=== PATIENT | male | born 1965 | race Caucasian/White ===

== ENCOUNTER → 2024-06-25 13:31 | Outpatient (REF) | payer MEDICARE, SELFPAY ==
[2024-06-25 14:42] LABS: % Basophils 1.3 % (0-2); % Immature Granulocytes 2.9 % (0-0.5); % Lymphocytes 32.7 % (20.5-51.1); % Neutrophils 52.1 % (42.2-75.2); Absolute Basophils 0.1 10^3/uL (0-0.2); Absolute Eosinophils 0.3 10^3/uL (0-0.7); Absolute Immature Granulocytes 0.3 10^3/uL (0-0.05); Absolute Lymphocytes 2.8 10^3/uL (1.2-3.4); Absolute Monocytes 0.7 10^3/uL (0.1-0.6); Absolute Neutrophils 4.5 10^3/uL (1.4-6.5); Hematocrit 45.1 % (39.0-52.0); Hemoglobin 15.6 g/dL (13.0-18.0); Mean Corp Hgb Conc. 34.6 g/dL (33.0-37.0); Mean Corpuscular Hgb 30.1 pg (27.0-31.0); Mean Corpuscular Volume 87.1 fL (80.0-94.0); Mean Platelet Volume 9.7 fL (7.4-10.4); Nucleated Red Blood Cells % 0 % (-); Platelet Count 338 10^3/uL (130-400); Red Blood Cell Count 5.18 10^6/uL (4.70-6.10); Red Cell Dist. Width 12.2 % (11.5-14.5); White Blood Cell Count 8.6 10^3/uL (4.8-10.8)
== END ==
LOC: REG 13:31
PROVIDERS: ATTENDING PHYSICIAN Specialist; FAMILY PHYSICIAN Family Medicine
DX: E29.1 Testicular hypofunction (principal); R97.20 Elevated prostate specific antigen [PSA]
CPT/HCPCS: 36415; 84153; 84403; 85025

== ENCOUNTER → 2025-02-04 13:24 | Outpatient (REF) | payer MEDICARE, SELFPAY ==
[2025-02-04 13:55] LABS: Hematocrit 47.3 % (39.0-52.0); Hemoglobin 16.6 g/dL (13.0-18.0); Mean Corp Hgb Conc. 35.1 g/dL (33.0-37.0); Mean Corpuscular Volume 86.5 fL (80.0-94.0); Nucleated Red Blood Cells % 0 % (-); Platelet Count 346 10^3/uL (130-400); Red Cell Dist. Width 12.5 % (11.5-14.5)
[2025-02-04 14:13] LABS: Depakane 35.1 ug/ml (50.0-120.0)
[2025-02-04 14:24] LABS: ALT (SGPT) 26 U/L (0-50); AST (SGOT) 24 U/L (17-59); Albumin 4.7 g/dl (3.5-5.0); Alkaline Phosphatase 73 U/L (38-126); Blood Urea Nitrogen 18 mg/dl (9-20); Calcium 9.8 mg/dl (8.4-10.2); Carbon Dioxide 22 mmol/L (22-30); Chloride 101 mmol/L (98-107); Glucose 272 mg/dl (70-99); Potassium 4.9 mmol/L (3.5-5.1); Sodium 136 mmol/L (135-145); Total Protein 8.1 g/dl (6.3-8.2); eGFR > 60.00
== END ==
LOC: REG 13:24
PROVIDERS: ATTENDING PHYSICIAN Psychiatry & Neurology Psychiatry; FAMILY PHYSICIAN Family Medicine
DX: Z51.81 Encounter for therapeutic drug level monitoring (principal); R94.5 Abnormal results of liver function studies; E87.1 Hypo-osmolality and hyponatremia; D72.819 Decreased white blood cell count, unspecified; D69.6 Thrombocytopenia, unspecified
CPT/HCPCS: 36415; 80053; 80164; 85025

== ENCOUNTER 2025-03-09 11:23 | Inpatient (IN) | payer MEDICARE, SELFPAY ==
[2025-03-09] VITALS (22 sets, daily range): BP systolic 128–193; BP diastolic 87–127; O2SAT 93; BMI 41.6; BMI 40.9
--- NOTE | 2025-03-09 06:16 | ED.GENMED ---
History of Present Illness
General
Chief Complaint: Blood Pressure Problem
Source: patient
Exam Limitations: none
Time Seen by Provider: 03/09/25 06:15
Nursing documentation reviewed up to this point in time: agreed with
History of Present Illness
History of Present Illness:
The patient is a 59-year-old man with a past medical history of congestive heart failure who complains of gradual onset of a headache and fatigue that started about 48 hours ago. Patient reports that over time the headache has intensified and is
severe. Patient reports it is located primarily along the front of his head and radiates towards the back, on both sides. He denies weakness, numbness, and vision changes. Patient denies cough and sore throat. He denies sick contacts. He
reports mild nausea but no vomiting. He denies diarrhea. He denies rash. Additionally, patient reports his blood pressure has been extremely high for several months because he is not been able to access his Coreg. He is unsure of the dose.
Patient states his primary care doctor has not refilled his Coreg due to outstanding medical bills.
Past History
Past History
ED Past Medical History: CHF, HTN and NIDDM
ED Past Surgical History: Other (Defibrillator)
Social History
Tobacco: Former smoker
Alcohol: None
Drug: None
Personal: Single
Living: with family
Employment: Other
Family History
Family History: Other
Review of Systems
Review of Systems
Allergies reviewed?: Yes
All Other Systems: ROS reviewed and negative except as documented in HPI and ROS
Constitutional: Reports fatigue
EENT: Reports no symptoms
Respiratory: Reports no symptoms
Cardiac: Reports no symptoms
ABD/GI: Reports nausea
: Reports no symptoms
Musculoskeletal: Reports no symptoms
Skin: Reports no symptoms
Neurological: Reports headache; Denies dizzy, weakness or numbness
Endocrine: Reports no symptoms
Hematologic/Lymphatic: Reports no symptoms
Psychiatric: Reports no symptoms
Phy Exam
Physical Exam
Physical Exam:
Physical Exam
General: Patient appears uncomfortable but nontoxic. Fully conversational
Neck: supple. no meningeal signs. No pharyngeal erythema or exudate. Dry mucous membrane
Heart: Tachycardic
Lungs: no acute respiratory distress. clear bilaterally
Abdomen: normal bowel sounds. not tender. no CVAT
Neuro: alert and orientedx3. no focal neurological deficits, PERRL, extraocular muscles intact. 5 out of 5 strength without drift. Patient appears to have some difficulty with right side visual meraz
Skin: no rash
Psychiatric: well kept. interactive and cooperative
Extremities: no edema. no calf tenderness. negative homans. good distal pulses
Course
Orders/Labs/Results
Orders:
Orders
03/09/25
CR Chest Portable - 1 View Urgent
Reason For Exam: SOB
03/09/25 06:08
Electrocardiogram (*1) Urgent
Reason for Study: Tachycardia
EKG- Treatment ONCE
03/09/25 06:09
Cardiovascular Evaluation Urgent
Comment: ADD
Complete Blood Count/With Diff Urgent
Comprehensive Metabolic Panel Urgent
Ferritin Urgent
Comment: ADD
Folate Urgent
Comment: ADD
Free T4 Urgent
Glycohemoglobin (HgbA1c) Urgent
LDL Cholesterol, Direct Urgent
NT-proBNP Urgent
Comment: ADD ON
TSH Reflex To Free T4 Urgent
Comment: ADD
Vitamin B12 Urgent
Comment: ADD
03/09/25 06:27
0.9% Sodium Chloride 1000 ml [Nss] 1,000 ml IV BOLUS
03/09/25 06:29
Carvedilol [Coreg] 25 mg PO NOW STA
03/09/25 06:30
CT Head W/o Iv Contrast Urgent
Comment:
Reason For Exam: headache
03/09/25 06:32
COVID-19 Antigen Urgent
Source: Nasal Swab
Influenza A+B Rapid Molecular Urgent
JASMEET Source: Nasal Swab
Specimen Description:
03/09/25 06:40
Acetaminophen [Tylenol] 1,000 mg PO NOW STA
03/09/25 07:34
CT Head & Neck Angio W/wo IV Urgent
Comment:
Reason For Exam: stroke, R vision changes for 24 hours
03/09/25 07:44
NEUROLOGY CONSULT Urgent
Consulting Provider: Stew Palacios
Was physician already notified: Yes
Reason for consult: stroke
Aspirin Chewable [Low Strength Aspirin] 81 mg PO NOW STA
03/09/25 08:03
HYDROmorphone [Dilaudid] 0.5 mg .ROUTE .STK-MED ONE
03/09/25 08:07
HYDROmorphone [Dilaudid] 0.5 mg IV NOW STA
03/09/25 09:26
Add On- LAB Routine
Tests Added?: folate, ferritin, TSH reflex, B12, lipid panel, hbA1c
03/09/25 09:32
Ot Eval And Treat Routine
Pt Eval And Treat Routine
Activity Level: Out of Bed-Early Mobility
Speech Therapy Eval & Treat Routine
Treatment: multiple large strokes
03/09/25 09:33
Prochlorperazine [Compazine] 10 mg IV NOW STA
Patient Education As Directed
Type: Stroke education packet
03/09/25 09:36
Case Management Consult ONCE
Case Management Consult: Discharge Planning
Comment: difficulty affording medications
03/09/25 10:00
Propranolol [Inderal] 10 mg PO BID
03/09/25 10:10
Diphenhydramine [Benadryl] 25 mg IV NOW STA
03/09/25 10:56
Add On- LAB Urgent
Tests Added?: BNP
03/09/25 11:04
Admit/Transfer Patient As Directed
Co-Sign Provider:
Level of Care: Inpatient admission
Assign to:: Telemetry
Physician / Group: ary schulte
Diagnosis: subacute CVA
Reason for Telemetry: CVA/TIA
Date to Stop Telemetry: 03/12/25
Time to Stop Telemetry: 11:00
Reason for Hospitalization: subacute CVA
Expected length of stay greater than two midnights?: Yes
ELOS- Estimated Length of Stay in days: 2
I certify the patient meets the requirements for IP care: Yes
03/09/25 11:05
PRN Pain Medication Management As Directed
May give lesser potent ordered pain med per pt: Yes
preference::
Protocol:: Medication orders for pain may be administered in a
manner that supports deferring to patient preference
when the pt is:
- Requesting an ordered lesser potent pain medication.
Least to most potent pain medications are defined
as: acetaminophen < NSAID < tramadol < opioids
(morphine, oxycodone, hydromorphone).
- Requesting a lesser dose of the same medication IF
ORDERED.
- Requesting a less intrusive route of administration
if both routes are prescribed by the provider (PO <
IV).
03/09/25 11:10
Code Status As Directed
Resuscitation Status: Full Code
03/09/25 11:15
Clopidogrel Bisulfate [Plavix] 300 mg PO NOW STA
Lisinopril [Zestril] 20 mg PO DAILY
03/09/25 11:19
Insulin Glargine Lantus [Lantus] 20 units Subcutaneous Insulin Syringe [Syringe-Insulin] 0 unit SC ONCE
03/09/25 11:52
Sodium Urgent
03/09/25 15:30
Prochlorperazine [Compazine] 10 mg IV Q6HPRN PRN
03/12/25 11:00
DC Protocol for Telemetry ONCE
Abnormal Lab Results
03/09/25 03/09/25
06:09 10:32
Abs Immat Gran (auto) 0.5 H 10^3/uL
(0-0.05)
Absolute Monos (auto) 0.9 H 10^3/uL
(0.1-0.6)
Immature Gran % 4.3 H %
(0-0.5)
Sodium 129 L mmol/L
(135-145)
Chloride 96 L mmol/L
(98-107)
Carbon Dioxide 21 L mmol/L
(22-30)
BUN 24 H mg/dl
(9-20)
Glucose 358 H mg/dl
(70-99)
Hemoglobin A1c 9.6 H %
(4.0-5.6)
Triglycerides 1865 H mg/dl
(10-149)
Total Cholesterol 265 H mg/dl
(50-199)
TSH (Reflex) 18.40 H uIU/ml
(0.47-4.68)
POC Glucose 275 H mg/dl
(70-99)
03/09/25 06:09
03/09/25 06:09
Vital Signs
Initial and Last Documented VS:
Initial Vital Signs
Temp Pulse Resp BP
99.9 F 119 20 165/106
03/09/25 05:55 03/09/25 05:55 03/09/25 05:55 03/09/25 05:55
Last Documented Vital Signs
Temp Pulse Resp BP Pulse Ox
99.9 F 84 12 139/93 96
03/09/25 05:55 03/09/25 13:45 03/09/25 13:45 03/09/25 13:36 03/09/25 13:45
MDM/Problems Addressed
Differential Diagnosis Includes:
Acute viral illness such as COVID or flu, hypertensive urgency, hypertensive emergency, acute meningitis
MDM/Problems Addressed:
Patient presents with acute headache and uncontrolled blood pressure
Chronic conditions affecting care: HTN
Acute Exacerbation and/or Progression of Chronic Illness:
Patient is acutely hypertensive due to poor control of his chronic hypertension
Acute Exacerbation and/or Progression of Chronic Illness: HTN
*Radiology
Radiology exam reviewed: preliminary read by ED provider (Chest x-ray read by me. No acute disease) and radiology read reviewed
*Pulse Oximetry
Oxygen Mode of Delivery: Room air
Patient hypoxic: no
*EKG
Interpreted by ED Provider?: Yes
Interpretation: abnormal
Comparison EKG: no comparison EKG present
Rate: tachycardiac
Rhythm: av sequential
[place]: right axis deviation
Interval: normal interval
QRS Pattern: wide non-specific
Ischemia: non-specific ST changes
*Press Operator Printing Interpretation
Rate: tachycardiac
Interpretation: abnormal
Rhythm: av sequential
*Critical Care Note
Total Time (30-74mins, 75-104mins- exclusive of procedures): 46 minutes
comment:
46 minutes of critical care given to patient including reviewing his blood work, CT report, speaking to radiology as well as neurology as well as counseling the patient
Data Reviewed
Review of Other/Old Records Reveals: Labs (Labs reviewed from 01/2025 when patient was found to have a glucose of 272)
Patient Management
Social determinants of health affecting care: Living situation and Strong social support
Discussion with other providers: Hospitalist and Other (Dr. Palacios evaluated the patient on consult)
Escalation/DeEscalation of care consider admission/obs:
Patient will be admitted for subacute infarct
Update Note
Update Note:
7:15 AM I received a call from radiology that patient's CT shows a large subacute left posterior parietal occipital infarct. Dr. Palacios notified.
I went in to evaluate the patient again. He is now telling me that he has had vision changes that he woke up with yesterday morning. He describes that he is unable to read words that are on the right side of the page. Patient did not tell me
about this symptom until now.
multiple attempts to get patient down for CTA. Patient states that he cannot tolerate laying flat because he feels short of breath. I listen to his lungs multiple times and they remain clear. Chest x-ray ordered and shows no acute disease. I
have made multiple attempts to encourage patient to get the CTA
ED Attending Note
-
Portions of this chart may have been created with voice recognition software.� Occasional wrong word or��sound alike� substitutions may have occurred due to the inherent limitations of voice recognition software.
Discharge Plan
Departure
Patient Disposition: Admit
Date of Disposition: 03/09/25
Time of Disposition: 09:00
Presentation/result/management discussed w/ accepting MD/DO: Hospitalist
Patient with high blood pressure during this ER visit?: Yes
Condition: Fair
Covid-19: Not Applicable
Discharge Problem:
Hypertensive emergency, Subacute infarct, Hyperglycemia due to diabetes mellitus
Interventions
Interventions:
*Risk Screen - Suicide Last Done: 03/09/25 05:55
*General Assessment Last Done: 03/09/25 05:55
*Neglect/Abuse Screening Last Done: 03/09/25 05:55
*ED- Fall Risk Assessment Last Done: 03/09/25 05:55
*ED COVID-19 Vaccine History Last Done: 03/09/25 06:16
*ED Influenza Vaccine History Last Done: 03/09/25 06:16
ED- Cardiac Assessment Last Done: 03/09/25 06:16
ED- Neurological Assessment Last Done: 03/09/25 07:50
ED- Pulmonary Assessment Last Done: 03/09/25 06:16
[2025-03-09] MEDS: COREG 25 MG PO (06:38)
[2025-03-09] MEDS: NSS 1000 IV (06:40)
[2025-03-09 06:45] LABS: Hematocrit 41.9 % (39.0-52.0); Hemoglobin 15.0 g/dL (13.0-18.0); Mean Corp Hgb Conc. 35.8 g/dL (33.0-37.0); Mean Corpuscular Volume 85.5 fL (80.0-94.0); Nucleated Red Blood Cells % 0.2 % (-); Platelet Count 338 10^3/uL (130-400); Red Cell Dist. Width 14.0 % (11.5-14.5)
[2025-03-09] MEDS: TYLENOL 1000 MG PO (07:01)
[2025-03-09 07:15] LABS: COVID-19 Antigen Negative (Negative)
[2025-03-09 07:18] LABS: ALT (SGPT) 28 U/L (0-50); AST (SGOT) 21 U/L (17-59); Albumin 4.0 g/dl (3.5-5.0); Alkaline Phosphatase 83 U/L (38-126); Blood Urea Nitrogen 24 mg/dl (9-20); Calcium 9.6 mg/dl (8.4-10.2); Carbon Dioxide 21 mmol/L (22-30); Chloride 96 mmol/L (98-107); Estimated Creatinine Clearance > 125 ml/min; Glucose 358 mg/dl (70-99); Potassium 4.9 mmol/L (3.5-5.1); Sodium 129 mmol/L (135-145); Total Protein 7.2 g/dl (6.3-8.2); eGFR > 60.00
[2025-03-09] MEDS: LOW STRENGTH ASPIRIN 81 MG PO (07:52)
[2025-03-09] MEDS: DILAUDID 0.5 MG IV (08:07)
--- NOTE | 2025-03-09 09:19 | CON.NEURO4 ---
Addendum entered and electronically signed by Stew Palacios MD 03/09/25 12:53:
Studies reviewed.
I have personally examined the patient. I reviewed and agree with the RESEARCH PROGRAM COORDINATOR's Note.
My addenda:
Awake, alert, interactive. No acute distress.
Speech intact.
Follows 2-step requests w/o difficulty. No tremor.
Extra-ocular movements grossly intact.
Facial movements full and symmetric. Hearing intact to normal conversational volume.
Normal UE movements bilaterally.
Neck: full ROM.
Chest: no dyspnea
Heart: no JVD
Ext: (-) Clubbing, (-) Cyanosis, (-) Edema
IMPRESSIONS/RECOMMENDATIONS:
Abrupt onset of visual loss secondary to acute ischemic stroke involving the left parieto-occipital region
Most likely secondary to medical noncompliance secondary to economic issues
Provide aspirin and clopidogrel for 21 days, then aspirin alone
Provide Ezetimibe due to the patient's elevated triglycerides and unclear LDL level
Goal of normotension
Check CTA head and neck due to possible intracranial stenosis
Check blood work for potential metabolic changes
Check MRI of brain when possible for completeness
Rehabilitation evaluations and treatment
D/W patient
All questions answered.
Will continue to follow pending results.
Original Note:
Documented by User: Rose Hurd NP 03/09/25 12:28
Consultation - Neurology 4
-
CONSULTING PHYSICIAN: Stew Palacios MD
REFERRING PHYSICIAN: ER/Dr. Contreras
DICTATED BY: PARDEEP Snow
DATE/TIME OF REQUEST: 03/09/25
DATE/TIME OF CONSULTATION: 03/09/25
Reason for Consultation: Vision changes, headache
History of Present Illness:
This is a 59-year-old right-handed male who has presented to the hospital with report of headache and vision changes. Patient has a history of a right parietal ischemic stroke in 2017. He reports at that time he had whole body weakness/was unable
to turn over in bed, had brain fog, and a severe headache. He was evaluated at [facility] at that time. He did not have any surgical intervention/unknown if he received tPA. He notes that for some time following that stroke he had processing
difficulty, but this resolved and he was back to functioning at baseline. He takes a full dose aspirin, he reports this is per Cardiology. Due to financial difficulty, he notes that he he has been unable to obtain his medications and his blood
pressure has been significantly high fo several months.
About two days ago on 03/07/25 he reports developing a severe headache that was disrupting his sleep. He notes that the pain is in his left neck, bitemporal, and sometimes on the top of his head. He rates it an 8/10. He also endorses nausea and mild
photophobia. This morning (03/09/25), he reports waking up and being unable to see things on his right side, prompting him to come to the ER for evaluation. CT head was obtained and demonstrates a large left parietal-occipital subacute ischemic
infarct. He is not a candidate for TNK/IAT due to being outside of the time window, infarct appearing subacute. He reports that his vision change has persisted. He denies any dizziness, speech/swallow difficulty, numbness, and weakness. He notes
some brain fog/difficulty processing things.
Past Medical History: Right parietal ischemic stroke 2017, CHF, HTN, HLD, CAD, NIDDM, obesity, LESTER (not wearing cpap)
Surgical History: AICD
Family History: Reviewed and noncontributory.
Social History: Former smoker. Denies alcohol and illicit drug use.
Allergies: No known allergies.
Home Medications: See below.
Review of Symptoms:
Patient denies any fever, chest pain, shortness of breath, GI or symptoms.
�Per the HPI.�All systems are reviewed negative except above.
Physical Exam:
The patient is afebrile, abdomen is obese, breathing is unlabored, skin is warm and dry, no edema.
NIH Stroke Scale:
I performed the NIH stroke scale on the patient on 03/09/25 at 0930. The patient scored 2 points on the NIH stroke scale assessment, which were assigned as follows: See below.
Neurologic Examination:
The patient is awake, alert and oriented x 3. He is able to follow simple commands and answer questions appropriately. Mild difficulty following two-step commands. There is no aphasia or dysarthria. On cranial nerve assessment, pupils are 3 mm
bilateral, round and reactive to light and accommodation. There is a homonymous right hemianopia. Extraocular movements are intact. Facial sensations are intact and bilaterally symmetrical, there is no facial asymmetry. Hearing is intact bilaterally
to normal conversation volume. Tongue palate and uvula are midline. Sternocleidomastoid strengths are full bilaterally. Motor strengths are 5/5 bilateral upper, 5/5 right lower, and 5-/5 left lower extremities on medical research [place] scale.
There is no drift or involuntary movement noted. Deep tendon reflexes are 1+ bilateral upper and lower extremities and Babinski is absent bilaterally. There was no extinction noted on double simultaneous stimulation. Coordination is intact by finger
to nose bilaterally.
Lab Results: See below.
Neuro Imaging:
1. CT head 03/09/25: Findings compatible with moderate old infarct in the right posterior parietal lobe. Moderate to large sized area of slight decreased attenuation in the left posterior parietal-occipital region likely representing a subacute
nonhemorrhagic infarct. In light of clinical symptomatology, other etiologies such as infection or tumor would be less likely. Recommend MRI for more complete evaluation.
Differentials for the patient's presentation include:
1. Abrupt change in vision and headache likely due to a subacute left parietal-occipital ischemic infarct as demonstrated on CT head imaging.
2. Uncontrolled hypertension.
3. History of a large left parietal ischemic stroke.
Patient has the following risk factors for their symptoms: Hx stroke, HTN, HLD, obesity
IV Tenecteplase/IAT candidacy: He is not a candidate for TNK/IAT due to being outside of the time window, infarct appearing subacute.
Recommendations:
-Provide prochlorperazine 10mg IV x1 now for headache.
-CTA head/neck pending.
-Unable to have MRI brain due to AICD.
-Provide a loading dose of clopidogrel x1 now. Continue full dose aspirin and clopidogrel 75mg daily for 21 days.
-Aspirin efficacy testing pending.
-Goal normotension as this event likely occurred days ago.
-LDL goal <70. LDL is 35, at goal, but inaccurate due to triglyceride level of 1865. Consideration of starting ezetimibe or fenofibrate for triglyceride and lipid control.
-Goal normoglycemia, hbA1c is 9.6.
-NIHSS and neurological checks per unit guidelines.
-Provide patient with a stroke education packet.
-PT/OT/ST evaluations.
-DVT prophylaxis.
Discussed patient care with: Dr. Palacios, the patient
Vital Signs and Labs
-
Vital Signs and Labs:
Vital Signs
Temp Pulse Resp BP Pulse Ox
99.9 F 107 17 178/95 93
03/09/25 05:55 03/09/25 09:00 03/09/25 09:00 03/09/25 09:00 03/09/25 09:00
Lab Results
03/09/25 06:09
03/09/25 06:09
Sodium 129 mmol/L (135-145) L 03/09/25 06:09
Potassium 4.9 mmol/L (3.5-5.1) 03/09/25 06:09
BUN 24 mg/dl (9-20) H 03/09/25 06:09
Glucose 358 mg/dl (70-99) H 03/09/25 06:09
Calcium 9.6 mg/dl (8.4-10.2) 03/09/25 06:09
Medications
-
Home Medications
�Medication �Instructions �Recorded
allopurinol 100 mg tablet 100 mg PO DAILY 03/09/25
aspirin 325 mg tablet 325 mg PO DAILY 03/09/25
bupropion HCl 150 mg 24 hr tablet, 150 mg PO DAILY 03/09/25
extended release (Wellbutrin XL)
cholecalciferol (vitamin D3) 25 25 mcg PO DAILY 03/09/25
mcg (1,000 unit) tablet (Vitamin
D3)
divalproex 500 mg tablet,delayed 1,000 mg PO BID 03/09/25
release (Depakote)
icosapent ethyl 1 gram capsule 2 g PO BID 03/09/25
(Vascepa)
levothyroxine 200 mcg tablet 200 mcg PO DAILY 03/09/25
(Synthroid)
levothyroxine 25 mcg tablet 25 mcg PO DAILY 03/09/25
(Synthroid)
magnesium oxide 400 mg PO DAILY 03/09/25
metformin 500 mg tablet 1,000 mg PO BID 03/09/25
mirtazapine 15 mg tablet 15 mg PO HS 03/09/25
spironolactone 25 mg tablet 25 mg PO DAILY 03/09/25
testosterone 2 pump topical DAILY 03/09/25
therapeutic multivitamin 1 tab PO DAILY 03/09/25
trazodone 100 mg tablet 200 mg PO HS 03/09/25
venlafaxine 150 mg 150 mg PO HS 03/09/25
capsule,extended release 24 hr
(Effexor XR)
venlafaxine 150 mg 300 mg PO DAILY 03/09/25
capsule,extended release 24 hr
(Effexor XR)
NIH Stroke Score
Subsequent NIH Scale
Date of Subsequent NIH Scale: 03/09/25
Time of Subsequent NIH Scale: 09:30
NIH Stroke Score
Level of Consciousness: 0 - Alert
LOC Questions: 0-Answers both correctly
LOC Commands: 0-Performs both correctly
Best Horizontal Gaze: 0-Normal
Visual [place]: 2=Full hemianopia
Facial Palsy: 0=Normal, symmetrical
Motor - Right Arm: 0=No drift 10 seconds
Motor - Left Arm: 0=No drift 10 seconds
Motor - Right Le-No drift 5 seconds
Motor - Left Le-No drift 5 seconds
Limb Ataxia: 0-Absent
Sensation: 0-Normal
Best Language: 0-No aphasia
Dysarthria: 0-Normal
Extinction and Inattention: 0-No abnormality
NIH Total Score:: 2
Modified [place] (mRS) Score
Modified [place] Scale (mRS): Moderate disability. Requires some help, able to walk unassisted.
Score: 3
Alteplase Contraindication
Inclusion and Exclusion criteria reviewed: Yes
Reasons for NON-Tx with Thrombolytics ABSOLUTE Exclusions: Greater than 4.5 hrs from onset of sxs
IAT Contraindications: NIHSS < 6

Documented by User: Stew Palacios MD 03/09/25 12:47
NIH Stroke Score
NIH Stroke Score
NIH Total Score:: 2
Modified [place] (mRS) Score
Score: 3
[2025-03-09] MEDS: COMPAZINE 10 MG IV (09:52)
--- NOTE | 2025-03-09 10:12 | EDCM ---
CM received consult and reviewed chart. Met with pt bedside in ED. Lives with his mother in first floor apartment, no CHERY. 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
Independent in ADLs, personal care and ambulation. No assistive devices.
Confirms prescription coverage.
No hx VN or SNF.
PCP: Will be seeing Kylah Alanis [employer] at [facility] in April, his former PCP retired. Also follow with Dr [facility] at [facility].
Pt is having difficulty with medical expenses as he has been focusing on his mother's care. Pt told me he has an outstanding bill at his doctor's office so they did not refill his meds. I gave him information for [email or web address] and [facility]
on Aging.
CM will continue to follow for all discharge planning needs.
[2025-03-09] MEDS: INDERAL 10 MG PO ×2 (10:13→19:48)
[2025-03-09] MEDS: BENADRYL 25 MG IV (10:13)
[2025-03-09 10:21] LABS: HDL Cholesterol 40 mg/dl
[2025-03-09 10:35] LABS: Glucose - Point of Care 275 mg/dl (70-99)
--- NOTE | 2025-03-09 10:35 | HPS.HSE ---
Family Physician
-
Family Physician: Iain Nicholson
Chief Complaint
-
CHATTERJEE, vision changes
History of Present Illness
59-year-old male with a past medical history of stroke, hypertension, diabetes, CHF, hypothyroidism, gout, anxiety/depression, and obesity who presents with a 2-3-day history of right parietal headache with vision changes. Patient denies dysphagia,
denies dysarthria, denies weakness. No double vision. He reports that the peripheral vision on his right eye is faded. He was found to be hypertensive in the ER, with a head CT showing subacute stroke. Patient also complains of shortness of
breath for 5 days. He denies any weight gain, denies missing his Aldactone. He is not on Lasix at home. He denies coughing, denies wheezing.
Medical History
Past Medical History
Past Medical History: Reports Other
Additional Past Medical History:
Congestive heart failure
Hypothyroidism
Anxiety/depression
Gout
Diabetes
Essential hypertension
Stroke in 2017
Obesity
Past Surgical History: Reports Other
Additional Past Surgical History:
Defibrillator placement
Tonsillectomy
Social History
Tobacco: Smoker (Quit cigarettes 15 years ago, now smokes 1 cigar a day)
Alcohol: None
Drug: None
Living: With Family (Lives with his mother with dementia, and cares for her)
Family History
Family History: Not pertinent
Allergies / Home Medications
Allergies reflects when Allergies were last updated in [facility].
Home Medications with original date entered in [facility]
Allergy/Medication List:
Allergies
Allergy/AdvReac Type Severity Reaction Status Date / Time
No Known Allergies Allergy Unverified 03/09/25 06:07
Home Medications Table - record
�Medication �Instructions �Recorded �Confirmed
allopurinol 100 mg tablet 100 mg PO DAILY 03/09/25 03/09/25
aspirin 325 mg tablet 325 mg PO DAILY 03/09/25 03/09/25
bupropion HCl 150 mg 24 hr tablet, 150 mg PO DAILY 03/09/25 03/09/25
extended release (Wellbutrin XL)
cholecalciferol (vitamin D3) 25 25 mcg PO DAILY 03/09/25 03/09/25
mcg (1,000 unit) tablet (Vitamin
D3)
divalproex 500 mg tablet,delayed 1,000 mg PO BID 03/09/25 03/09/25
release (Depakote)
icosapent ethyl 1 gram capsule 2 g PO BID 03/09/25 03/09/25
(Vascepa)
levothyroxine 200 mcg tablet 200 mcg PO DAILY 03/09/25 03/09/25
(Synthroid)
levothyroxine 25 mcg tablet 25 mcg PO DAILY 03/09/25 03/09/25
(Synthroid)
magnesium oxide 400 mg PO DAILY 03/09/25 03/09/25
metformin 500 mg tablet 1,000 mg PO BID 03/09/25 03/09/25
mirtazapine 15 mg tablet 15 mg PO HS 03/09/25 03/09/25
spironolactone 25 mg tablet 25 mg PO DAILY 03/09/25 03/09/25
testosterone 2 pump topical DAILY 03/09/25 03/09/25
therapeutic multivitamin 1 tab PO DAILY 03/09/25 03/09/25
trazodone 100 mg tablet 200 mg PO HS 03/09/25 03/09/25
venlafaxine 150 mg 150 mg PO HS 03/09/25 03/09/25
capsule,extended release 24 hr
(Effexor XR)
venlafaxine 150 mg 300 mg PO DAILY 03/09/25 03/09/25
capsule,extended release 24 hr
(Effexor XR)
Review of Systems
-
A 12 point ROS was completed and negative except as noted: Yes
Physical Exam
Vital Signs
Vital Signs
Temp Pulse Resp BP Pulse Ox
99.9 F 115 17 177/95 93
03/09/25 05:55 03/09/25 10:13 03/09/25 09:00 03/09/25 10:23 03/09/25 09:00
Physical Exam
General: No Apparent Distress
HEENT: NormoCephalic, Anicteric and Moist mucous membranes
Respiratory: Clear
Cardiac: S1/S2 and Regular Rhythm
GI: Soft, Non Tender, Non Distended and Normal Bowel Sounds
Musculoskeletal: No Clubbing, No Cyanosis, Edema, Left Lower Extremity and Edema, Right Lower Extremity
Neuro: Awake, Alert, Oriented and Other (Right visual field deficit)
Psych: Calm
Laboratory Results
-
03/09/25 06:09
03/09/25 06:09
Laboratory Results
Total Bilirubin 0.5 mg/dl (0.2-1.3) 03/09/25 06:09
AST 21 U/L (17-59) 03/09/25 06:09
ALT 28 U/L (0-50) 03/09/25 06:09
Alkaline Phosphatase 83 U/L (38-126) 03/09/25 06:09
Impression/Plan
-
HPI: 59-year-old male with a past medical history of stroke, hypertension, diabetes, CHF, hypothyroidism, gout, anxiety/depression, and obesity who presents with a 2-3-day history of right parietal headache with vision changes. Patient denies
dysphagia, denies dysarthria, denies weakness. No double vision. He reports that the peripheral vision on his right eye is faded. He was found to be hypertensive in the ER, with a head CT showing subacute stroke. Patient also complains of
shortness of breath for 5 days. He denies any weight gain, denies missing his Aldactone. He is not on Lasix at home. He denies coughing, denies wheezing.
#Subacute CVA
Head CT shows 'Moderate to large sized area of slight decreased attenuation in the left posterior parietal-occipital region likely representing a subacute nonhemorrhagic infarct'
Out of the window for permissive hypertension, treat blood pressure as below
He is on aspirin 325 mg daily at home, unclear why
Start aspirin 81 mg daily, start Plavix 75 mg daily for 21 days through 03/30, start Zetia and atorvastatin
Treat diabetes that is uncontrolled, as below
Treat hypertriglyceridemia as below
Consult neurology, PT/OT/SPL
#Hypertensive emergency
Start lisinopril 20 mg daily, continue spironolactone 25 mg daily
#Acute heart failure, unknown ejection fraction
CXR neg, BNP 1739
Check echocardiogram, start Lasix 40 mg IV daily, continue spironolactone 25 mg daily, trend creatinine, trend daily weights
#Hypervolemic hyponatremia
Fluid restrict, Lasix, trend sodium
#Hypertriglyceridemia
Triglycerides 5, LDL 35 is an accurate
Patient on Vascepa at home
Start Zetia and atorvastatin
#Uncontrolled type 2 diabetes with hemoglobin A1c 9.6
Start Lantus 20 units daily at noon, start Premeal insulin
Diabetic diet, sliding scale insulin
#Cigar dependency
Quit smoking 15 years ago, now smokes 1 cigar a day
#Hypothyroidism
TSH 18.4, free T4 normal
Currently on levothyroxine to 25 mcg daily, will ask patient when was the last time he had his dose increased
#Anxiety/depression
Continue mirtazapine, Wellbutrin
#History of gout
Continue allopurinol
#Obesity due to excess calories
Affects all aspects of care
DVT prophylaxis�subcu Lovenox
Full Code
Total time spent to see the patient on the floor, examine the patient, review data and lab results, discuss treatment plan with patient, nursing staff around 81 minutes.
[2025-03-09 10:53] LABS: Glycohemoglobin (HgbA1c) 9.6 % (4.0-5.6)
[2025-03-09 11:06] LABS: LDL Cholesterol, Direct 35 mg/dl
[2025-03-09] MEDS: ZESTRIL 20 MG PO (11:45)
[2025-03-09] MEDS: PLAVIX 300 MG PO (11:45)
[2025-03-09] MEDS: LANTUS 0.2 UNITS SC ×2 (11:49→16:54)
[2025-03-09 12:01] LABS: Ferritin 52.7 ng/ml (17.9-464.0)
[2025-03-09 12:26] LABS: Sodium 129 mmol/L (135-145)
[2025-03-09 12:32] LABS: Folate 4.0 ng/ml (2.76-20); Vitamin B12 521 pg/ml (239-931)
[2025-03-09] MEDS: LASIX 40 MG IV (13:22)
--- NOTE | 2025-03-09 16:01 | PTOTSP ---
Speech Therapy Evaluation:
Language:
Given subacute CVA, the Quick Aphasia Battery (QAB) form 1 was administered. Scores were as follows:
Word Comprehension: 10.00
Sentence Comprehension: 10.00
Word Findin.75
Grammatical Construction: 9.75
Speech Motor Programmin.00
Repetition: 10.00
Readin.50
QAB Overall: 9.73 - no aphasia
Impression: Pt earned an overall score of 9.73 on the QAB, indicative of no aphasia. Points lost on reading comprehension subtest due to delay in response time with R visual changes. Pt reported difficulty with R peripheral vision, however able to
adequately scan/visualize stimulus on R side of page. With reading subtest, pt utilized finger tracking for improved accuracy
Swallowing:
Pt with acute (subacute CVA) and chronic (CVA) risk factors of dysphagia. Despite this, oropharyngeal swallow appeared grossly functional at bedside. No overt s/sx of aspiration across consistencies. CXR without PNA, WBC WNL, and pt on room air.
Recommend:
1. Regular solids and thin liquids
2. Medications as tolerated
3. General aspiration precautions
4. COMMUNITY ENGAGEMENT MANAGER to follow to monitor tolerance of diet, likely brief and to determine if pt would benefit from cognitive assessment
[2025-03-09] MEDS: ZETIA 10 MG PO (16:53)
[2025-03-09] MEDS: DEPAKOTE (12 HR RELEASE) 1000 MG PO ×2 (16:53→19:48)
[2025-03-09] MEDS: ZYLOPRIM 100 MG PO (16:53)
[2025-03-09] MEDS: WELLBUTRIN XL (24 hour extended release) 150 MG PO (16:53)
[2025-03-09] MEDS: ALDACTONE 25 MG PO (16:54)
[2025-03-09] MEDS: LOVENOX 60 MG SC (16:57)
[2025-03-09] MEDS: LIPITOR 40 MG PO (16:57)
[2025-03-09] MEDS: EFFEXOR XR 300 MG PO (17:10)
[2025-03-09 19:36] LABS: Glucose - Point of Care 277 mg/dl (70-99)
[2025-03-09] MEDS: NOVOLOG FLEXPEN 5 UNITS SC (19:48)
[2025-03-09] MEDS: NOVOLOG FLEXPEN-MODERATE RESISTANCE 5 UNITS SC (19:48)
[2025-03-09] MEDS: TYLENOL 650 MG PO (19:50)
[2025-03-09] MEDS: EFFEXOR XR 150 MG PO (21:17)
[2025-03-09] MEDS: REMERON 15 MG PO (21:17)
[2025-03-09] MEDS: DESYREL 200 MG PO (21:17)
[2025-03-09 22:02] LABS: Glucose - Point of Care 335 mg/dl (70-99)
[2025-03-10] VITALS (7 sets, daily range): BP systolic 122–158; BP diastolic 78–106; PULSE 100; BMI 40.9
--- NOTE | 2025-03-10 03:19 | PTCARENOTE ---
Pt came to the nursing station asking for more trazadone as he 'cannot sleep'. When I went in the room to talk to the patient, I told him that I had asked the House Provider, Ann Hermosillo, for something for sleep/anxiety. Pt was unhappy that that
would 'take too long' and that he 'need something to knock me out'. While awaiting a reply from Ann, pt expressed that he wanted to leave AMA. Ann came to bedside to talk with the patient.
[2025-03-10] MEDS: BENADRYL 25 MG IV (03:32)
--- NOTE | 2025-03-10 04:40 | PTCARENOTE ---
Pt came to nurses station asking for food, implying that his shakiness was due to hypoglycemia. Accucheck revealed a blood sugar of 274. Pt asked 'what does that mean?' Informed pt that his blood sugar was high and that he might require his insulin
to be increased during the day.
[2025-03-10 04:42] LABS: Glucose - Point of Care 274 mg/dl (70-99)
[2025-03-10] MEDS: SYNTHROID 25 MCG PO (04:45)
[2025-03-10] MEDS: SYNTHROID 200 MCG PO (04:45)
--- NOTE | 2025-03-10 06:15 | PTCARENOTE ---
Pt very agitated and restless about not being able to order food yet. Informed pt that he can order breakfast when the cafeteria opens at 06:30. Pt demanded I 'get the discharge paperwork'. Informed House Provider. Lunch box provided to pt.
Accucheck obtained and insulin administered per orders.
[2025-03-10] MEDS: NOVOLOG FLEXPEN 4 UNITS SC (06:25)
[2025-03-10] MEDS: NOVOLOG FLEXPEN-MODERATE RESISTANCE 5 UNITS SC ×2 (06:25→18:34)
[2025-03-10 06:26] LABS: Glucose - Point of Care 283 mg/dl (70-99)
[2025-03-10] MEDS: WELLBUTRIN XL (24 hour extended release) 150 MG PO (08:14)
[2025-03-10] MEDS: EFFEXOR XR 300 MG PO (08:14)
[2025-03-10] MEDS: ZYLOPRIM 100 MG PO (08:15)
[2025-03-10] MEDS: PLAVIX 75 MG PO (08:15)
[2025-03-10] MEDS: LOW STRENGTH ASPIRIN 81 MG PO (08:15)
[2025-03-10] MEDS: DEPAKOTE (12 HR RELEASE) 1000 MG PO ×2 (08:15→20:45)
[2025-03-10] MEDS: INDERAL 10 MG PO ×2 (08:15→20:45)
[2025-03-10] MEDS: ALDACTONE 25 MG PO (08:15)
[2025-03-10] MEDS: ZESTRIL 20 MG PO (08:15)
[2025-03-10] MEDS: LOVENOX 40 MG SC (08:16)
[2025-03-10] MEDS: ZETIA 10 MG PO (08:19)
[2025-03-10] MEDS: TYLENOL 650 MG PO (09:21)
--- NOTE | 2025-03-10 09:32 | W.PN.NEURO.1 ---
Subjective/Objective
Subjective Data
Date of Service: March 10, 2025
Objective Data
Vital Signs
Temp Pulse Resp BP Pulse Ox
36.7 C 105 18 149/96 98
03/10/25 08:07 03/10/25 08:07 03/10/25 08:07 03/10/25 08:07 03/10/25 08:07
Lab Results
03/09/25 06:09
Sodium 129 mmol/L (135-145) L 03/09/25 11:52
Potassium 4.9 mmol/L (3.5-5.1) 03/09/25 06:09
BUN 24 mg/dl (9-20) H 03/09/25 06:09
Glucose 358 mg/dl (70-99) H 03/09/25 06:09
Calcium 9.6 mg/dl (8.4-10.2) 03/09/25 06:09
Lim-H-Hsljsggpabe Pept 1740 pg/ml 03/09/25 06:09
LDL Cholesterol Direct 35 mg/dl 03/09/25 06:09
LDL Cholesterol, Calc mg/dl 03/09/25 06:09
Vitamin B12 521 pg/ml (239-931) 03/09/25 06:09
Patient Allergies
No Known Allergies Allergy (Unverified 03/09/25 06:07)
Past History
Past History
ED Past Medical History: CHF, CVA (2016, 2024), HTN, NIDDM and Other (medical non-compliance, LESTER, obesity)
ED Past Surgical History: Other (Defibrillator)
Social History
Tobacco: Former smoker
Alcohol: None
Drug: None
Personal: Single
Living: with family
Employment: Other
Family History
Family History: Other
Medications
-
Medications:
Generic Name Dose Route Start Last Admin
Trade Name Freq PRN Reason Stop Dose Admin
Acetaminophen 650 mg 03/09/25 15:22 03/10/25 09:21
Acetaminophen 325 Mg Tablet PO 04/06/25 15:21 650 mg
Q4HPRN PRN Administration
CHATTERJEE, mild pain, or temp >100.4F
Allopurinol 100 mg 03/09/25 15:22 03/10/25 08:15
Allopurinol 100 Mg Tablet PO 04/06/25 15:21 100 mg
DAILY RYNE Administration
Aspirin 81 mg 03/10/25 08:00 03/10/25 08:15
Aspirin 81 Mg Chewable Tablet PO 04/07/25 07:59 81 mg
DAILY RYNE Administration
Atorvastatin Calcium 40 mg 03/09/25 18:00 03/09/25 16:57
Atorvastatin (Lipitor) 40 Mg Tablet PO 04/06/25 17:59 40 mg
QPM RYNE Administration
Bupropion HCl 150 mg 03/09/25 15:22 03/10/25 08:14
Bupropion (24hr) Extended Release 150 Mg Tablet PO 04/06/25 15:21 150 mg
DAILY RYNE Administration
Clopidogrel Bisulfate 75 mg 03/10/25 08:00 03/10/25 08:15
Clopidogrel 75 Mg Tablet PO 04/07/25 07:59 75 mg
DAILY RYNE Administration
Dextrose 12.5 grams 03/09/25 15:22
Dextrose 50% (0.5 Grams/Ml) 50 Ml Syringe IV 04/06/25 15:21
[id number] PRN
hypoglycemia
Protocol
Divalproex Sodium 1,000 mg 03/09/25 15:22 03/10/25 08:15
Divalproex 500 Mg Delayed Release (12 Hr) Tablet PO 04/06/25 15:21 1,000 mg
BID RYNE Administration
Ezetimibe 10 mg 03/09/25 15:22 03/10/25 08:19
Ezetimibe (Zetia) 10 Mg Tablet PO 04/06/25 15:21 10 mg
DAILY RYNE Administration
Enoxaparin Sodium 60 mg 03/10/25 18:00
Enoxaparin Sodium 40 Mg/0.4 Ml Syringe SC 04/07/25 17:59
QPM RYNE
Glucagon 1 mg 03/09/25 15:22
Glucagon 1 Mg Vial IM 04/06/25 15:21
PRN PRN
hypoglycemia
Protocol
Insulin Glargine 30 units/ 0.3 mls @ 0 mls/hr 03/10/25 09:18
Device SC 04/06/25 15:21
DAILY@1200 RYNE
As Directed
Insulin Aspart 0 units 03/09/25 16:30 03/10/25 06:25
Insulin Aspart Moderate Resistance 300 Units/3 Ml Pen.Injctr SC 04/06/25 16:29 5 units
AC RYNE Administration
Protocol
Insulin Aspart 8 units 03/10/25 09:18
Insulin Aspart (Novolog) 100 Units/Ml 3 Ml Flexpen SC 04/07/25 07:29
DAILY@0730 RYNE
Insulin Aspart 10 units 03/10/25 09:18
Insulin Aspart (Novolog) 100 Units/Ml 3 Ml Flexpen SC 04/06/25 15:21
DAILY@1130 RYNE
Insulin Aspart 10 units 03/10/25 09:18
Insulin Aspart (Novolog) 100 Units/Ml 3 Ml Flexpen SC 04/06/25 16:29
DAILY@1630 RYNE
Levothyroxine Sodium 25 mcg 03/10/25 06:00 03/10/25 04:45
Levothyroxine 25 Mcg Tablet PO 04/07/25 05:59 25 mcg
DAILY @ 0600 RYNE Administration
Levothyroxine Sodium 200 mcg 03/10/25 06:00 03/10/25 04:45
Levothyroxine 200 Mcg Tablet PO 04/07/25 05:59 200 mcg
DAILY @ 0600 RYNE Administration
Lisinopril 20 mg 03/09/25 11:15 03/10/25 08:15
Lisinopril 20 Mg Tablet PO 04/06/25 11:14 20 mg
DAILY RYNE Administration
Mirtazapine 15 mg 03/09/25 22:00 03/09/25 21:17
Mirtazapine 15 Mg Regular Release Tablet PO 04/06/25 21:59 15 mg
HS RYNE Administration
Non-Formulary Medication 2 grams 03/09/25 15:22
Icosapent Ethyl [Vascepa] PO 04/06/25 15:21
BID RYNE
Prochlorperazine Edisylate 10 mg 03/09/25 15:30
Prochlorperazine 10 Mg/2 Ml Vial IV 04/06/25 15:29
Q6HPRN PRN
headache
Propranolol HCl 10 mg 03/09/25 10:00 03/10/25 08:15
Propranolol 10 Mg Regular Release Tablet PO 04/06/25 09:59 10 mg
BID RYNE Administration
Sodium Chloride 0 flush 03/09/25 14:00
Sodium Chloride 0.9% (Flush) Syringe IV 04/06/25 13:59
PER PROTOCOL RYNE
Spironolactone 25 mg 03/09/25 16:00 03/10/25 08:15
Spironolactone 25 Mg Tablet PO 04/06/25 15:59 25 mg
DAILY RYNE Administration
Trazodone HCl 200 mg 03/09/25 22:00 03/09/25 21:17
Trazodone 100 Mg Tablet PO 04/06/25 21:59 200 mg
HS RYNE Administration
Venlafaxine HCl 150 mg 03/09/25 22:00 03/09/25 21:17
Venlafaxine 150 Mg Extended Release Capsule PO 04/06/25 21:59 150 mg
HS RYNE Administration
Venlafaxine HCl 300 mg 03/09/25 15:22 03/10/25 08:14
Venlafaxine 150 Mg Extended Release Capsule PO 04/06/25 15:21 300 mg
DAILY RYNE Administration
[2025-03-10 09:41] LABS: Blood Urea Nitrogen 25 mg/dl (9-20); Calcium 9.3 mg/dl (8.4-10.2); Carbon Dioxide 19 mmol/L (22-30); Chloride 97 mmol/L (98-107); Estimated Creatinine Clearance > 125 ml/min; Glucose 285 mg/dl (70-99); Magnesium 1.4 mg/dl (1.6-2.3); Potassium 4.7 mmol/L (3.5-5.1); Sodium 127 mmol/L (135-145); eGFR > 60.00
[2025-03-10 10:34] LABS: Cortisol, Random 12.5 ug/dl
[2025-03-10] MEDS: MAGNESIUM SULFATE 50 IV (11:50)
[2025-03-10 12:06] LABS: Glucose - Point of Care 248 mg/dl (70-99)
[2025-03-10] MEDS: NOVOLOG FLEXPEN-MODERATE RESISTANCE 3 UNITS SC (12:30)
[2025-03-10] MEDS: NOVOLOG FLEXPEN 10 UNITS SC ×2 (12:30→18:34)
[2025-03-10] MEDS: LANTUS 0.3 UNITS SC (12:31)
--- NOTE | 2025-03-10 13:00 | PTCARENOTE ---
03/10/2025 DIABETES EDUCATION CONSULTATION
I met with patient to review diabetes management. He has had DM for years, has not seen his PCP in 2 years. Has an appointment with a new PCP Kylah at [facility]. He has checked his BS in the past, results typically 250.
He is currently inpatient with a stroke. Discussed the physiology of T2D, organ damage, managing with medications, monitoring BG, nutrition, activity, sleep and managing stress. I reinforced signs of hyperglycemia, hypoglycemia and hypoglycemia
protocol; BS parameters and recommended HbA1c goals, glucometer and CGM instructions, glucose tracker, medic alert bracelet and outpatient DSME program. Written material provided.
He has experienced frequent thirst and dry mouth, also shakiness and dizziness but is unsure if he had low blood sugar. He said he eats 5 small meals a day, will switch to 3 meals and 2 snacks.
I provided patient with a [employer] glucometer sample kit. Provided verbal instructions on proper blood sugar testing technique, and demonstration with patient�s participation. Results were 256 mg/dL
I educated and demonstrated on insulin injection technique, timing, and storage. Discussed long and short acting insulin; onset/peak/duration, and encouraged her to administer his own injections with RN supervision while admitted. Discussed normal
target glucose ranges and a monitoring schedule 15 minutes before each meal when prescribed Novolog, and before bedtime. He also administered his lunch time dose of Novolog with RN supervision. Provided the nurse with pen needles patient will
receive upon discharge.
Encouraged patient to follow up with his PCP for post d/c appointment and to monitor medication and blood glucose levels. Provided list of endocrinologists if desired, to contact insurance company to verify in network status. Requested a
prescription for blood sugar testing supplies to be sent to his pharmacy on record. Patient verbalized understanding.
[2025-03-10] MEDS: LASIX 40 MG IV (14:05)
--- NOTE | 2025-03-10 14:52 | CARDSERVLU ---
Echocardiogram with [facility] completed after protocol screening completed. Allergies verified.
Patent IV site: ___rt AC__
IV site flushed with 0.9% NaCl pre and post administration.
Diluted bolus method utilized to enhance visualization of ventricular loza.
Total volume given: __2.5__ mL
Patient tolerated all procedures well without complications.
--- NOTE | 2025-03-10 15:39 | W.CON.NEPH ---
Consultation
-
Date/Time Consultation Requested: 03/10/25 1005
Date/Time Consultation Performed: 03/10/25 1530
Requesting Provider: Dre Looney Do
Performing Provider: Leanna Reina
Reason for Consultation: Hyponatremia
Medical History
-
Chief Complaint: CHATTERJEE vision changes
History of Present Illness:
59-year-old male with a past medical history of stroke, hypertension on spironolactone, diabetes on metformin, dilated cardiomyopathy CHF EF 30%? cards [place] Dr [place], chr hyponatremia, hypothyroidism on levothyroxine, gout on allopurinol,
anxiety/depression on wellbutrin, depakote, trazadone,effexor, and obesity who presents with a 2-3-day history of right parietal headache with vision changes on 03/09. reports that the peripheral vision on his right eye is faded. He was found to be
hypertensive in the ER, with a head CT showing subacute stroke. Patient also complains of shortness of breath for 5 days. He did miss meds 2days EPIDEMIOLOGY INTERN since was not feeling well. He denies coughing, denies wheezing. CXR was clear. His sodium on
admit was at 129(BG 358) and this morning at 127(BG 285) hence nephrology consulted for hyponatremia. HE offers no CP, sob better psot lasix today. He drinks lot of fluids 80 ounces/day with known h/o hyponatremia. No LE edema. No n/v. vision change
still same. Able to walk with out support. He also has LESTER but could not afford CPAP.
Past Medical History
Congestive heart failure
Hypothyroidism
Anxiety/depression
Gout
Diabetes
Essential hypertension
Stroke in 2017
Obesity, sleep apnea
hyponatremia
Past Surgical History: Other (Defibrillator placement Tonsillectomy)
Social History
Tobacco: Smoker (quit cig 15yrs ago, now smokes 1 cigar)
Alcohol: None
Living: With Family
Family History
Family History: Not Pertinent
Allergies / Home Medications
Allergy/AdvReac Type Severity Reaction Status Date / Time
No Known Allergies Allergy Unverified 03/09/25 06:07
�Medication �Instructions �Recorded �Confirmed �Type
allopurinol 100 mg tablet 100 mg PO DAILY Gout 03/09/25 03/09/25 History
aspirin 325 mg tablet 325 mg PO DAILY Blood Clot 03/09/25 03/09/25 History
Prevention/Tx
bupropion HCl 150 mg 24 hr tablet, 150 mg PO DAILY Mental 03/09/25 03/09/25 History
extended release (Wellbutrin XL) Health/Anxiety
cholecalciferol (vitamin D3) 25 25 mcg PO DAILY Supplement 03/09/25 03/09/25 History
mcg (1,000 unit) tablet (Vitamin
D3)
divalproex 500 mg tablet,delayed 1,000 mg PO BID Seizures 03/09/25 03/09/25 History
release (Depakote)
icosapent ethyl 1 gram capsule 2 g PO BID Antilipemic Agent 03/09/25 03/09/25 History
(Vascepa)
levothyroxine 200 mcg tablet 200 mcg PO DAILY Thyroid 03/09/25 03/09/25 History
(Synthroid)
levothyroxine 25 mcg tablet 25 mcg PO DAILY Thyroid 03/09/25 03/09/25 History
(Synthroid)
magnesium oxide 400 mg PO DAILY Supplement 03/09/25 03/09/25 History
metformin 500 mg tablet 1,000 mg PO BID Diabetes 03/09/25 03/09/25 History
mirtazapine 15 mg tablet 15 mg PO HS Mental Health/Anxiety 03/09/25 03/09/25 History
spironolactone 25 mg tablet 25 mg PO DAILY Fluid 03/09/25 03/09/25 History
Retention/Swelling
testosterone 2 pump topical DAILY HORMONE 03/09/25 03/09/25 History
therapeutic multivitamin 1 tab PO DAILY Supplement 03/09/25 03/09/25 History
trazodone 100 mg tablet 200 mg PO HS Mental Health/Anxiety 03/09/25 03/09/25 History
venlafaxine 150 mg 150 mg PO HS Mental Health/Anxiety 03/09/25 03/09/25 History
capsule,extended release 24 hr
(Effexor XR)
venlafaxine 150 mg 300 mg PO DAILY Mental 03/09/25 03/09/25 History
capsule,extended release 24 hr Health/Anxiety
(Effexor XR)
Physical Exam
Vital Signs
Vital Signs
Temp Pulse Resp BP Pulse Ox
98.3 F 108 18 128/88 97
03/10/25 11:35 03/10/25 11:35 03/10/25 11:35 03/10/25 14:05 03/10/25 11:35
Lab Results
WBC 10.8 10^3/uL (4.8-10.8) 03/09/25 06:09
RBC 4.90 10^6/uL (4.70-6.10) 03/09/25 06:09
Hgb 15.0 g/dL (13.0-18.0) 03/09/25 06:09
Hct 41.9 % (39.0-52.0) 03/09/25 06:09
Plt Count 338 10^3/uL (130-400) 03/09/25 06:09
Sodium 127 mmol/L (135-145) L 03/10/25 08:06
Potassium 4.7 mmol/L (3.5-5.1) 03/10/25 08:06
Chloride 97 mmol/L (98-107) L 03/10/25 08:06
Carbon Dioxide 19 mmol/L (22-30) L 03/10/25 08:06
BUN 25 mg/dl (9-20) H 03/10/25 08:06
Creatinine 0.8 mg/dL (0.7-1.3) 03/10/25 08:06
eGFR > 60.00 03/10/25 08:06
Glucose 285 mg/dl (70-99) H 03/10/25 08:06
Calcium 9.3 mg/dl (8.4-10.2) 03/10/25 08:06
Aqq-Y-Schxczjlbch Pept 1740 pg/ml 03/09/25 06:09
Albumin 4.0 g/dl (3.5-5.0) 03/09/25 06:09
Assessment/Plan
-
IMP:
Subacute CVA
Hypertensive emergency
Acute heart failure, cardiomyopathy EF ?30% per pt report
Hypervolemic hyponatremia
Hypertriglyceridemia
no gap met acidosis
Uncontrolled type 2 diabetes with hemoglobin A1c 9.6
Cigar dependency
Hypothyroidism
Anxiety/depression
History of gout
Obesity due to excess calories
possible sleep apnea
Plan:
A/w vision changes noted subacute CVA
Hyponatremia-possible pseudo with high TG and hyperglycemia, serum osmo normal
he is s/p lasix, would cont as needed, need FR 50 ounces/day
U osmo 789, U na 71
TSH high, FT4 normal, cortisol is ok
BP improving with meds-now on ACEI, cont aldactone
TG significantly high at 1865
monitor mild met acidosis
repalce mg
BG control
--- NOTE | 2025-03-10 15:53 | W.PN.HOSP.TC ---
Today's Communication/Plan
-
see bold
Assessment / Plan
Assessment / Plan
HPI: 59-year-old male with a past medical history of stroke, hypertension, diabetes, CHF, hypothyroidism, gout, anxiety/depression, and obesity who presents with a 2-3-day history of right parietal headache with vision changes. Patient denies
dysphagia, denies dysarthria, denies weakness. No double vision. He reports that the peripheral vision on his right eye is faded. He was found to be hypertensive in the ER, with a head CT showing subacute stroke. Patient also complains of
shortness of breath for 5 days. He denies any weight gain, denies missing his Aldactone. He is not on Lasix at home. He denies coughing, denies wheezing.
#Subacute CVA
Head CT shows 'Moderate to large sized area of slight decreased attenuation in the left posterior parietal-occipital region likely representing a subacute nonhemorrhagic infarct'
Out of the window for permissive hypertension, treat blood pressure as below
He is on aspirin 325 mg daily at home, unclear why
Changed to aspirin 81 mg daily, started Plavix 75 mg daily for 21 days through 03/30, started Zetia and atorvastatin
Treat diabetes that is uncontrolled, as below
Treat hypertriglyceridemia as below
Neurology following, PT/OT/SPL
#Hypertensive emergency
Started lisinopril 20 mg daily, continue spironolactone 25 mg daily
#Acute heart failure, unknown ejection fraction
CXR neg, BNP 1739, echo requested
Started Lasix 40 mg IV daily, continue spironolactone 25 mg daily, trend creatinine, trend daily weights
#Acute hyponatremia
TSH/am cortisol normal, check urine studies
Na dropped despite IV lasix, c/s nephrology
Fluid restrict, Lasix, trend sodium
#Hypertriglyceridemia
Triglycerides 1864, LDL 35 is an accurate
Patient on Vascepa at home
Started Zetia and atorvastatin
#Uncontrolled type 2 diabetes with hemoglobin A1c 9.6
Increased Lantus 30 units daily at noon, increased Premeal insulin
Diabetic diet, sliding scale insulin
#Hypomagnesemia
Replete by IV, recheck a.m. labs
#Cigar dependency
Quit smoking 15 years ago, now smokes 1 cigar a day
Cigar cessation counseling has been provided
#Hypothyroidism
TSH 18.4, free T4 normal
Currently on levothyroxine 225 mcg daily, will increase it to 50 mcg daily
Repeat thyroid function test in 4-6 weeks
#History of seizure disorder
Continue Depakote
#Anxiety/depression
Continue mirtazapine, Wellbutrin
#History of gout
Continue allopurinol
#Obesity due to excess calories
Affects all aspects of care
DVT prophylaxis�subcu Lovenox
Full Code
Total time spent to see the patient on the floor, examine the patient, review data and lab results, discuss treatment plan with patient, nursing staff around 51 minutes.
Physical Exam
General: Obese, no acute distress
HEENT: Normocephalic, Atraumatic, EOMI, MMM
Respiratory: Clear to Auscultation bilaterally
Cardiac: Normal S1/S2, Regular Rate and Rhythm
GI: Soft, Nontender, Nondistended, Normal Bowel Sounds
Extremities: No Clubbing, Cyanosis
Bilateral lower extremity edema noted
Neuro: Nonfocal/Grossly Intact
Psych: Calm, Cooperative
Derm: No Visible lesions
Anticipated Discharge: > 48 hours
Subjective/Interval History
-
Date of Service: March 10, 2025
Patient had problems sleeping last night. He reports his shortness of breath has resolved. His headache is much improved, he still has right visual deficit. Patient denies chest pain. He did have a fever of 100.8 at 7 PM last night.
Objective Data
-
Labs:
Laboratory Results
03/10/25
08:06
Sodium 127 L
Potassium 4.7
Chloride 97 L
Carbon Dioxide 19 L
BUN 25 H
Creatinine 0.8
Glucose 285 H
Calcium 9.3
Vital Signs:
Vital Signs
Temp Pulse Resp BP Pulse Ox
98.3 F 108 18 128/88 97
03/10/25 11:35 03/10/25 11:35 03/10/25 11:35 03/10/25 14:05 03/10/25 11:35
I&O
03/09/25 03/10/25 03/11/25
06:59 06:59 06:59
Intake Total 960 / 960
Output Total 650 / 650
Balance 310 / 310
--- NOTE | 2025-03-10 15:53 | CM ---
Addendum entered by Lynda Leary 03/11/25 15:44:
Current agencies being considered are [facility], [facility], and [facility].
Original Note:
CM met with Gustavo at bedside today. He is the primary caregiver for his mother; Gustavo's brother and sister in law are currently at the home taking care of his mother and will provide assist if needed after discharge.
PT and OT recommend home care services at discharge. Gustavo is agreeable to same and was provided with Medicare [employer] list. CM will f/u with Gustavo tomorrow to coordinate VN referral based on his choice.
Plan: Discharge to home with Home PT and OT pending pt's choice. Family will continue to provide care for Deons mother as long as needed; they are both retired, so able to help as long as needed.
[2025-03-10 17:14] LABS: Glucose - Point of Care 279 mg/dl (70-99)
[2025-03-10] MEDS: LIPITOR 40 MG PO (18:34)
[2025-03-10] MEDS: LOVENOX 80 MG SC (18:34)
[2025-03-10] MEDS: MELATONIN 5 MG PO (20:45)
[2025-03-10] MEDS: DESYREL 200 MG PO (21:38)
[2025-03-10] MEDS: EFFEXOR XR 150 MG PO (21:38)
[2025-03-10] MEDS: BENADRYL 50 MG PO (21:38)
[2025-03-10] MEDS: REMERON 15 MG PO (21:38)
[2025-03-10 22:05] LABS: Glucose - Point of Care 248 mg/dl (70-99)
[2025-03-11] VITALS (7 sets, daily range): BP systolic 113–151; BP diastolic 78–93; PULSE 98; O2SAT 97; BMI 41.0
[2025-03-11] MEDS: SYNTHROID 50 MCG PO (05:16)
[2025-03-11] MEDS: SYNTHROID 200 MCG PO (05:16)
[2025-03-11 06:17] LABS: Blood Urea Nitrogen 25 mg/dl (9-20); Calcium 9.1 mg/dl (8.4-10.2); Carbon Dioxide 26 mmol/L (22-30); Chloride 97 mmol/L (98-107); Estimated Creatinine Clearance > 125 ml/min; Glucose 194 mg/dl (70-99); Magnesium 1.6 mg/dl (1.6-2.3); Potassium 4.5 mmol/L (3.5-5.1); Sodium 129 mmol/L (135-145); eGFR > 60.00
[2025-03-11] MEDS: DEPAKOTE (12 HR RELEASE) 1000 MG PO ×2 (07:44→21:12)
[2025-03-11] MEDS: ZETIA 10 MG PO (07:44)
[2025-03-11] MEDS: ALDACTONE 25 MG PO (07:44)
[2025-03-11] MEDS: EFFEXOR XR 300 MG PO (07:44)
[2025-03-11] MEDS: PLAVIX 75 MG PO (07:44)
[2025-03-11] MEDS: WELLBUTRIN XL (24 hour extended release) 150 MG PO (07:44)
[2025-03-11] MEDS: LOW STRENGTH ASPIRIN 81 MG PO (07:45)
[2025-03-11] MEDS: ZESTRIL 20 MG PO (07:45)
[2025-03-11] MEDS: ZYLOPRIM 100 MG PO (07:45)
[2025-03-11] MEDS: INDERAL PO (07:46)
[2025-03-11 07:49] LABS: Glucose - Point of Care 187 mg/dl (70-99)
--- NOTE | 2025-03-11 08:39 | W.PN.HOSP.TC ---
Today's Communication/Plan
-
see bold
Assessment / Plan
Assessment / Plan
HPI: 59-year-old male with a past medical history of stroke, hypertension, diabetes, CHF, hypothyroidism, gout, anxiety/depression, and obesity who presents with a 2-3-day history of right parietal headache with vision changes. Patient denies
dysphagia, denies dysarthria, denies weakness. No double vision. He reports that the peripheral vision on his right eye is faded. He was found to be hypertensive in the ER, with a head CT showing subacute stroke. Patient also complains of
shortness of breath for 5 days. He denies any weight gain, denies missing his Aldactone. He is not on Lasix at home. He denies coughing, denies wheezing.
#Subacute CVA
Head CT shows 'Moderate to large sized area of slight decreased attenuation in the left posterior parietal-occipital region likely representing a subacute nonhemorrhagic infarct'
Out of the window for permissive hypertension, treat blood pressure as below
He is on aspirin 325 mg daily at home, unclear why
Changed to aspirin 81 mg daily, started Plavix 75 mg daily for 21 days through 03/30, started Zetia and atorvastatin
Treat diabetes that is uncontrolled, as below
Treat hypertriglyceridemia as below
Neurology following, PT/OT - rec HH
#Hypertensive emergency
Started lisinopril 20 mg daily, continue spironolactone 25 mg daily
#Acute heart failure with a reduced ejection fraction
#Bilateral lower extremity edema
CXR neg, BNP 0, 03/10 echo EF 15%
Patient follows with Dr. Delcid at [facility], records requested
Consult cardiology, continue Lasix 40 mg IV daily, continue spironolactone 25 mg daily
Lower extremity Dopplers requested
Trend creatinine, trend daily weights
#Pseudohyponatremia
TSH/am cortisol normal, urine studies reviewed
Appreciate nephrology input, pseudohyponatremia due to hypertriglyceridemia
#Hypertriglyceridemia
Triglycerides 1865, LDL 35 is an accurate
Patient on Vascepa at home
Started Zetia and atorvastatin
#Uncontrolled type 2 diabetes with hemoglobin A1c 9.6
Increased Lantus 33 units daily at noon, increased Premeal insulin
Diabetic diet, sliding scale insulin, insulin teaching
#Hypomagnesemia
Repleted and resolved
#Cigar dependency
Quit smoking 15 years ago, now smokes 1 cigar a day
Cigar cessation counseling has been provided
#Hypothyroidism
TSH 18.4, free T4 normal
Currently on levothyroxine 225 mcg daily, now increased to 250 mcg daily
Repeat thyroid function test in 4-6 weeks
#History of seizure disorder
Continue Depakote
#Anxiety/depression
Continue mirtazapine, Wellbutrin
#History of gout
Continue allopurinol
#Obesity due to excess calories
Affects all aspects of care
DVT prophylaxis�subcu Lovenox
Full Code
Total time spent to see the patient on the floor, examine the patient, review data and lab results, discuss treatment plan with patient, nursing staff around 52 minutes.
Updated family at bedside 03/11
Physical Exam
General: Obese, no acute distress
HEENT: Normocephalic, Atraumatic, EOMI, MMM
Respiratory: Clear to Auscultation bilaterally
Cardiac: Normal S1/S2, Regular Rate and Rhythm
GI: Soft, Nontender, Nondistended, Normal Bowel Sounds
Extremities: No Clubbing, Cyanosis
Bilateral lower extremity edema noted
Neuro: Nonfocal/Grossly Intact
Psych: Calm, Cooperative
Anticipated Discharge: 24 - 48 hours
Subjective/Interval History
-
Date of Service: March 11, 2025
Patient reports his headache has resolved, and his right visual field deficit has improved. His shortness of breath is also improved. He continues to feel short of breath with standing. Denies chest pain. No fever, no vomiting.
Objective Data
-
Labs:
Laboratory Results
03/11/25
05:38
Sodium 129 L
Potassium 4.5
Chloride 97 L
Carbon Dioxide 26
BUN 25 H
Creatinine 0.8
Glucose 194 H
Calcium 9.1
Vital Signs:
Vital Signs
Temp Pulse Resp BP Pulse Ox
98.0 F 103 16 124/81 95
03/11/25 07:31 03/11/25 07:46 03/11/25 07:31 03/11/25 07:46 03/11/25 07:31
I&O
03/10/25 03/11/25 03/12/25
06:59 06:59 06:59
Intake Total 960 / 960 840 / 840
Output Total 650 / 650 400 / 400
Balance 310 / 310 440 / 440
[2025-03-11] MEDS: NOVOLOG FLEXPEN 12 UNITS SC (09:00)
[2025-03-11] MEDS: NOVOLOG FLEXPEN-MODERATE RESISTANCE 1 UNITS SC ×3 (09:00→17:48)
[2025-03-11 11:35] LABS: Glucose - Point of Care 183 mg/dl (70-99)
[2025-03-11] MEDS: LANTUS 0.33 UNITS SC (13:00)
--- NOTE | 2025-03-11 13:38 | W.PN.NEPH.PH ---
Today's Communication / Plan
-
follow BMP
Assessment/Plan
-
IMP:
Subacute CVA
Hypertensive emergency
Acute heart failure, cardiomyopathy EF ?30% per pt report
Hypervolemic hyponatremia
Hypertriglyceridemia
no gap met acidosis
Uncontrolled type 2 diabetes with hemoglobin A1c 9.6
Cigar dependency
Hypothyroidism
Anxiety/depression
History of gout
Obesity due to excess calories
possible sleep apnea
Plan:
psuedohyponatremia, no specific tx
FR and lasix given EF 15%
should continue salt restriction
follow BMP
in future, all hyponatremia labs should be qualified with Sosm +/- FLP
-
-
Date of Service: March 11, 2025
CC / HPI / ROS
-
Chief Complaint:
hyponatremia
History of Present Illness:
Na stable 129
Serum osm 285
EF 15%
BP high stable
Review of Systems:
no CP/SOB
Labs
-
Labs:
WBC 10.8 10^3/uL (4.8-10.8) 03/09/25 06:09
RBC 4.90 10^6/uL (4.70-6.10) 03/09/25 06:09
Hgb 15.0 g/dL (13.0-18.0) 03/09/25 06:09
Hct 41.9 % (39.0-52.0) 03/09/25 06:09
Plt Count 338 10^3/uL (130-400) 03/09/25 06:09
Sodium 129 mmol/L (135-145) L 03/11/25 05:38
Potassium 4.5 mmol/L (3.5-5.1) 03/11/25 05:38
Chloride 97 mmol/L (98-107) L 03/11/25 05:38
Carbon Dioxide 26 mmol/L (22-30) 03/11/25 05:38
BUN 25 mg/dl (9-20) H 03/11/25 05:38
Creatinine 0.8 mg/dL (0.7-1.3) 03/11/25 05:38
eGFR > 60.00 03/11/25 05:38
Glucose 194 mg/dl (70-99) H 03/11/25 05:38
Calcium 9.1 mg/dl (8.4-10.2) 03/11/25 05:38
Isb-T-Eswqxngvzwq Pept 1740 pg/ml 03/09/25 06:09
Albumin 4.0 g/dl (3.5-5.0) 03/09/25 06:09
Physical Exam
-
Vital Signs:
Vital Signs
Temp Pulse Resp BP Pulse Ox
98.2 F 100 18 151/91 97
03/11/25 11:02 03/11/25 11:02 03/11/25 11:02 03/11/25 11:02 03/11/25 11:02
Cardiovascular:: Regular rate and rhythm
Respiratory:: Bilateral: CTA
Lung Excursion:: Normal
Abdomen:: Nontender and Soft
Bowel Sounds:: Normal
Extremity Edema:: +1: Bilateral:
[2025-03-11] MEDS: LASIX 40 MG IV (13:53)
[2025-03-11] MEDS: NOVOLOG FLEXPEN 14 UNITS SC ×2 (13:53→17:47)
--- NOTE | 2025-03-11 15:05 | CON.CAR ---
Addendum entered and electronically signed by Sam Colon DO 03/11/25 16:28:
I saw and examined the patient.
The Optical Worker's note was reviewed and I agree with the note.
Comment:
Patient is a pleasant 59-year-old male with a history of hypothyroidism, SVT with ablation 1993, complete heart block with dual-chamber pacemaker with lead dislodgment and revision in 2011, nonischemic cardiomyopathy with upgrade to [employer]-D
([employer]), right parietal CVA 2015, diabetes mellitus type 2, dyslipidemia, heart failure with reduced ejection fraction, medication nonadherence posing hazard to his health presenting with acute on chronic heart failure and new stroke.
Patient follows with Dr. Delcid cardiology. Patient reported lack of medical therapy due to cost and nonadherence. Head CT on admission demonstrates moderate to large size decreased attenuation in the left posterior parietal occipital region
representing subacute nonhemorrhagic CVA. Patient resting comfortably in chair reporting no significant shortness of breath, palpitations, weakness. He denies any chest pain, palpitations, near-syncope, syncope, or weakness. Initial presentation
was with headache and vision changes
GENERAL: no acute distress, obese
EYE: sclera anicteric
NECK: Supple, no appreciated JVD or carotid bruit due to size/obesity
ENT: normal nose, moist mucosal membranes
CARDIAC: Regular rate and rhythm, +S1/S2, no murmur, rubs, or gallops; left-sided CIED site well-healed no evidence of erythema, swelling, warmth
CHEST/PULMONARY: Normal effort, clear breath sounds
ABDOMEN: Soft, without focal tenderness or distention
NEUROLOGICAL: Alert and oriented x3
SKIN: Warm and dry, no rash; bilateral 1+ pitting edema
PSYCH: Normal and appropriate interaction.
Telemetry demonstrates V pacing
EKG on 03/09/2025 a sensed V paced (sinus tachycardia with ventricular pacing 112 bpm)
A/P as below
Reintroduction of goal-directed medical therapy with careful monitoring of electrolytes and renal function
Patient hyponatremic, nephrology is following, close monitoring through diuresis
BNP mildly elevated continue with IV diuresis for now
Aspirin/Plavix in the setting of CVA per neurology
Discussed at length with patient regarding importance of medication adherence
Monitor on telemetry
Original Note:
Consultation
Consultation Request
Date/Time Consultation Performed: 03/11/25
Requesting Provider: Dr. Madelaine Nunez
Performing Provider: Dena Swan PA-C for Dr. Colon
Reason for Consultation: CHF
Medical History
-
Chief Complaint: headache
History of Present Illness:
Patient is a 59-year-old male with past medical history of hypothyroidism, SVT ablation in 1993, subsequent intermittent complete heart block resulting in [employer] dual-chamber pacemaker placement, then with lead dislodgment and revision in 2011,
nonischemic cardiomyopathy diagnosed in 2012 with subsequent upgrade of device to a [employer] BiV ICD, right parietal CVA in 2015, type 2 diabetes, hyperlipidemia, chronic heart failure with reduced EF who presents to [facility] due to evaluation of
headache and visual changes. He reports for the last several months he has not been taking his medications as he ran out. He has not been seen by his king maker Dr. Delcid for some time, and states he was having financial issues with an
outstanding balance at Dr. Delcid's office, and therefore did not want to schedule follow-up, but was told he could not get refills of his medicines without coming in to be seen. Head CT showed moderate to large size area of decreased attenuation
in left posterior parietal occipital region representing subacute nonhemorrhagic infarct. Also presented with hypertensive emergency.
PMH:
Chronic heart failure with reduced EF
History of SVT ablation in 1993
Intermittent complete heart block resulting in [employer] dual-chamber pacemaker placement
lead dislodgment and revision in 2011
NICM diagnosed 2012 with upgrade of device to [employer] BiV ICD
History of right parietal CVA in 2015
History of seizure disorder
Type 2 diabetes
Hypertension
Hyperlipidemia
Hypothyroidism
Gout
Depression/anxiety
Past Medical History
Past Medical History: Other (in HPI)
Social History
Tobacco: Former Smoker
Living: With Family (mother)
Employment: Disabled
Allergies / Home Medications
Allergy/AdvReac Type Severity Reaction Status Date / Time
No Known Allergies Allergy Unverified 03/09/25 06:07
�Medication �Instructions �Recorded �Confirmed �Type
allopurinol 100 mg tablet 100 mg PO DAILY Gout 03/09/25 03/09/25 History
aspirin 325 mg tablet 325 mg PO DAILY Blood Clot 03/09/25 03/09/25 History
Prevention/Tx
bupropion HCl 150 mg 24 hr tablet, 150 mg PO DAILY Mental 03/09/25 03/09/25 History
extended release (Wellbutrin XL) Health/Anxiety
cholecalciferol (vitamin D3) 25 25 mcg PO DAILY Supplement 03/09/25 03/09/25 History
mcg (1,000 unit) tablet (Vitamin
D3)
divalproex 500 mg tablet,delayed 1,000 mg PO BID Seizures 03/09/25 03/09/25 History
release (Depakote)
icosapent ethyl 1 gram capsule 2 g PO BID Antilipemic Agent 03/09/25 03/09/25 History
(Vascepa)
levothyroxine 200 mcg tablet 200 mcg PO DAILY Thyroid 03/09/25 03/09/25 History
(Synthroid)
levothyroxine 25 mcg tablet 25 mcg PO DAILY Thyroid 03/09/25 03/09/25 History
(Synthroid)
magnesium oxide 400 mg PO DAILY Supplement 03/09/25 03/09/25 History
metformin 500 mg tablet 1,000 mg PO BID Diabetes 03/09/25 03/09/25 History
mirtazapine 15 mg tablet 15 mg PO HS Mental Health/Anxiety 03/09/25 03/09/25 History
spironolactone 25 mg tablet 25 mg PO DAILY Fluid 03/09/25 03/09/25 History
Retention/Swelling
testosterone 2 pump topical DAILY HORMONE 03/09/25 03/09/25 History
therapeutic multivitamin 1 tab PO DAILY Supplement 03/09/25 03/09/25 History
trazodone 100 mg tablet 200 mg PO HS Mental Health/Anxiety 03/09/25 03/09/25 History
venlafaxine 150 mg 150 mg PO HS Mental Health/Anxiety 03/09/25 03/09/25 History
capsule,extended release 24 hr
(Effexor XR)
venlafaxine 150 mg 300 mg PO DAILY Mental 03/09/25 03/09/25 History
capsule,extended release 24 hr Health/Anxiety
(Effexor XR)
Review of Systems
-
History Source: Patient
All other systems: Negative unless noted
Physical Exam
Vital Signs
Temp Pulse Resp BP Pulse Ox
98.2 F 100 18 151/91 97
03/11/25 11:02 03/11/25 11:02 03/11/25 11:02 03/11/25 11:02 03/11/25 11:02
Lab Results
03/09/25 06:09
03/11/25 05:38
Ndi-E-Jiliwkfodjz Pept 1740 pg/ml 03/09/25 06:09
Physical Exam
General: No Apparent Distress, Comfortable and Other (obese)
HEENT: Normocephalic, Anicteric and Moist Mucous Membranes
Respiratory: Clear and Non Labored Respirations
Cardiac: S1/S2 and Regular Rhythm
GI: Soft, Non Tender, Non Distended and Normal Bowel Sounds
Musculoskeletal: No Clubbing, No Cyanosis and Edema (trace edema of B/L LE)
Skin: Warm and Dry
Neuro: AO x 3
Impression / Plan
-
Primary Tower Operator: Dr. Delcid of [facility]
Assessment:
Presentation with headache, visual changes
Subacute L CVA
Hypertensive emergency
Acute on chronic heart failure with reduced EF
History of SVT ablation in 1993
Intermittent complete heart block resulting in [employer] dual-chamber pacemaker placement
lead dislodgment and revision in 2011
NICM diagnosed 2012 with upgrade of device to [employer] BiV ICD
History of right parietal CVA in 2015
History of seizure disorder
Type 2 diabetes
Hypertension
Hyperlipidemia/Hypertriglyceridemia
Hypothyroidism
Gout
Depression/anxiety
Obesity
Med noncompliance
ECHO 2019: Technically difficult study, moderately dilated LV, LVSF severely reduced however impossible to comment upon segmental wall motion given limitations of study, severe global hypokinesis of LV
ECHO 03/10/2025: Technically difficult study, EF 15%, stage I diastolic dysfunction, mildly dilated RA, mild MR, PAP 22 mmHg
Plan:
- Patient presents with headache and visual changes and is found by head CT to have subacute left CVA. Also with hypertensive emergency, likely secondary to medication noncompliance over the last 2 months
- Recommendations post CVA per neurology. on asa, plavix
- Cardiology consulted due to concern for acute on chronic congestive heart failure with proBNP of 1740.
- Continue IV Lasix 40 mg daily. Creatinine stable at 0.8
- Follow hyponatremia in the setting of diuresis. Nephrology following
- Echo with results as above, EF 15%. Upon review of prior records obtained and reviewed from [facility], EF was significantly reduced in past
- By last office note dated 2022 patient was on carvedilol 25 mg twice daily, Entresto 49/41 mg twice daily, spironolactone 25 mg daily. currently restarted on spironolactone 25mg daily and lisinopril 20mg daily added by primary service. would
attempt to add back coreg as BP allows
- triglycerides significantly elevated at 1800. on vascepa as OP, but was not on statin? now on lipitor 40mg QPM and zetia in addition to vascepa
- synthroid dose decreased this admission due to elevated TSH
- OP follow up with Dr. Delcid
- encouraged medication compliance
Data Reviewed
-
EKG: Tracing Personally Visualized and interpreted
CT Scan: Report Reviewed by me
Medical Tests (Nuc Med, Echo etc): Report Reviewed by me
Labs: Labs Reviewed by me
Old Records: Requested and Reviewed
[2025-03-11 16:50] LABS: Glucose - Point of Care 168 mg/dl (70-99)
[2025-03-11] MEDS: LIPITOR 40 MG PO (17:21)
[2025-03-11] MEDS: LOVENOX 80 MG SC (17:21)
[2025-03-11 20:23] LABS: Glucose - Point of Care 195 mg/dl (70-99)
[2025-03-11] MEDS: MELATONIN 5 MG PO (21:12)
[2025-03-11] MEDS: INDERAL 10 MG PO (21:13)
[2025-03-11] MEDS: EFFEXOR XR 150 MG PO (21:13)
[2025-03-11] MEDS: BENADRYL 50 MG PO (21:14)
[2025-03-11] MEDS: DESYREL 200 MG PO (21:14)
[2025-03-11] MEDS: REMERON 15 MG PO (21:30)
[2025-03-12] VITALS (8 sets, daily range): BP systolic 120–148; BP diastolic 77–101; PULSE 95; O2SAT 96
[2025-03-12] MEDS: SYNTHROID 50 MCG PO (05:25)
[2025-03-12] MEDS: SYNTHROID 200 MCG PO (05:25)
[2025-03-12 07:03] LABS: Blood Urea Nitrogen 26 mg/dl (9-20); Calcium 9.7 mg/dl (8.4-10.2); Carbon Dioxide 29 mmol/L (22-30); Chloride 95 mmol/L (98-107); Estimated Creatinine Clearance > 125 ml/min; Glucose 127 mg/dl (70-99); Potassium 4.4 mmol/L (3.5-5.1); Sodium 131 mmol/L (135-145); eGFR > 60.00
[2025-03-12 07:30] LABS: Glucose - Point of Care 138 mg/dl (70-99)
[2025-03-12] MEDS: LASIX 40 MG IV ×2 (08:29→17:17)
[2025-03-12] MEDS: EFFEXOR XR 300 MG PO (08:30)
[2025-03-12] MEDS: WELLBUTRIN XL (24 hour extended release) 150 MG PO (08:30)
[2025-03-12] MEDS: PLAVIX 75 MG PO (08:30)
[2025-03-12] MEDS: DEPAKOTE (12 HR RELEASE) 1000 MG PO ×2 (08:30→21:04)
[2025-03-12] MEDS: ZYLOPRIM 100 MG PO (08:30)
[2025-03-12] MEDS: INDERAL 10 MG PO (08:30)
[2025-03-12] MEDS: ALDACTONE 25 MG PO (08:31)
[2025-03-12] MEDS: LOW STRENGTH ASPIRIN 81 MG PO (08:31)
[2025-03-12] MEDS: ZETIA 10 MG PO (08:31)
[2025-03-12] MEDS: ZESTRIL 20 MG PO (08:31)
[2025-03-12] MEDS: NOVOLOG FLEXPEN 12 UNITS SC (08:38)
[2025-03-12] MEDS: NOVOLOG FLEXPEN-MODERATE RESISTANCE SC ×2 (08:38→17:08)
--- NOTE | 2025-03-12 09:06 | W.PN.HOSP.TC ---
Today's Communication/Plan
-
see bold
Assessment / Plan
Assessment / Plan
HPI: 59-year-old male with a past medical history of stroke, hypertension, diabetes, CHF, hypothyroidism, gout, anxiety/depression, and obesity who presents with a 2-3-day history of right parietal headache with vision changes. Patient denies
dysphagia, denies dysarthria, denies weakness. No double vision. He reports that the peripheral vision on his right eye is faded. He was found to be hypertensive in the ER, with a head CT showing subacute stroke. Patient also complains of
shortness of breath for 5 days. He denies any weight gain, denies missing his Aldactone. He is not on Lasix at home. He denies coughing, denies wheezing.
#Subacute CVA
Head CT shows 'Moderate to large sized area of slight decreased attenuation in the left posterior parietal-occipital region likely representing a subacute nonhemorrhagic infarct'
Out of the window for permissive hypertension, treat blood pressure as below
He is on aspirin 325 mg daily at home, unclear why
Changed to aspirin 81 mg daily, started Plavix 75 mg daily for 21 days through 03/30, started Zetia and atorvastatin
Treat diabetes that is uncontrolled, as below
Treat hypertriglyceridemia as below
Neurology following, PT/OT - rec HH
#Hypertensive emergency
Started lisinopril 20 mg daily, continue spironolactone 25 mg daily
Cardiology added Coreg 12.5 mg twice a day
#Acute heart failure with a reduced ejection fraction
#Bilateral lower extremity edema
CXR neg, BNP 1740, 03/10 echo EF 15%
Patient follows with Dr. Delcid at [place], records requested
Cardiology added Coreg 12.5 mg twice a day
Increase Lasix 40 mg IV BID, continue spironolactone 25 mg daily
Lower extremity Dopplers neg
Trend creatinine, trend daily weights
#Pseudohyponatremia
TSH/am cortisol normal, urine studies reviewed
Appreciate nephrology input, pseudohyponatremia due to hypertriglyceridemia
#Hypertriglyceridemia
Triglycerides 1865, LDL 35 is an accurate
Patient on Vascepa at home
Started Zetia and atorvastatin
#Uncontrolled type 2 diabetes with hemoglobin A1c 9.6
Increased Lantus 33 units daily at noon, increased Premeal insulin
Diabetic diet, sliding scale insulin, insulin teaching -patient will need to continue insulin upon discharge
#Hypomagnesemia
Repleted and resolved
#Cigar dependency
Quit smoking 15 years ago, now smokes 1 cigar a day
Cigar cessation counseling has been provided
#Hypothyroidism
TSH 18.4, free T4 normal
Currently on levothyroxine 225 mcg daily, now increased to 250 mcg daily
Repeat thyroid function test in 4-6 weeks
#History of seizure disorder
Continue Depakote
#Anxiety/depression
Continue mirtazapine, Wellbutrin
#History of gout
Continue allopurinol
#Obesity due to excess calories
Affects all aspects of care
DVT prophylaxis�subcu Lovenox
Full Code
Total time spent to see the patient on the floor, examine the patient, review data and lab results, discuss treatment plan with patient, nursing staff around 51 minutes.
Updated family at bedside 03/11
Physical Exam
General: Obese, no acute distress
HEENT: Normocephalic, Atraumatic, EOMI, MMM
Respiratory: Clear to Auscultation bilaterally
Cardiac: Normal S1/S2, Regular Rate and Rhythm
GI: Soft, Nontender, Nondistended, Normal Bowel Sounds
Extremities: No Clubbing, Cyanosis
Bilateral lower extremity edema noted
Neuro: Nonfocal/Grossly Intact
Psych: Calm, Cooperative
Anticipated Discharge: 24 - 48 hours
Subjective/Interval History
-
Date of Service: March 12, 2025
Patient continues to have problems sleeping at night. Denies chest pain, denies shortness of breath at rest, does have dyspnea with activity. No fever, no vomiting.
Objective Data
-
Labs:
Laboratory Results
03/12/25
06:04
Sodium 131 L
Potassium 4.4
Chloride 95 L
Carbon Dioxide 29
BUN 26 H
Creatinine 0.8
Glucose 127 H
Calcium 9.7
Vital Signs:
Vital Signs
Temp Pulse Resp BP Pulse Ox
97.8 F 99 16 148/99 96
03/12/25 08:14 03/12/25 08:14 03/12/25 08:14 03/12/25 08:14 03/12/25 08:14
I&O
03/11/25 03/12/25 03/13/25
06:59 06:59 06:59
Intake Total 840 / 840 600 / 600
Output Total 400 / 400 1725 / 1725
Balance 440 / 440 -1125 / -1125
[2025-03-12 11:44] LABS: Glucose - Point of Care 159 mg/dl (70-99)
--- NOTE | 2025-03-12 12:38 | W.PN.CARDCBS ---
Today's Communication / Plan
-
Uptitrate goal-directed medical therapy as tolerated
Add carvedilol 12.5 mg twice daily monitor response
Monitor on telemetry
Diuresis
Impression / Plan
-
Primary Secured Entrance Monitor: Dr. Delcid of [facility]
Assessment:
Presentation with headache, visual changes
Subacute L CVA
Hypertensive emergency, imprpving
Acute on chronic heart failure with reduced EF
History of SVT ablation in 1993
Intermittent complete heart block resulting in [employer] dual-chamber pacemaker placement
lead dislodgment and revision in 2011
NICM diagnosed 2012 with upgrade of device to [employer] BiV ICD
History of right parietal CVA in 2015
History of seizure disorder
Type 2 diabetes
Hypertension
Hyperlipidemia/Hypertriglyceridemia
Hypothyroidism
Gout
Depression/anxiety
Obesity
Med noncompliance
ECHO 2019: Technically difficult study, moderately dilated LV, LVSF severely reduced however impossible to comment upon segmental wall motion given limitations of study, severe global hypokinesis of LV
ECHO 03/10/2025: Technically difficult study, EF 15%, stage I diastolic dysfunction, mildly dilated RA, mild MR, PAP 22 mmHg
Plan:
- Patient presents with headache and visual changes and is found by head CT to have subacute left CVA. Also with hypertensive emergency, likely secondary to medication noncompliance over the last 2 months
- Recommendations post CVA per neurology. on asa, plavix
- Cardiology consulted due to concern for acute on chronic congestive heart failure with proBNP of 1740.
- Continue IV Lasix 40 mg daily. Creatinine stable at 0.8, defer to nephrology
- Follow hyponatremia in the setting of diuresis. Nephrology following
- Echo with results as above, EF 15%. Upon review of prior records obtained and reviewed from [facility], EF was significantly reduced in past
- By last office note dated 2022 patient was on carvedilol 25 mg twice daily, Entresto 49/41 mg twice daily, spironolactone 25 mg daily. currently restarted on spironolactone 25mg daily and lisinopril 20mg daily added by primary service. Will start
carvedilol at 12.5 mg twice daily (previously 25 mg twice daily) monitor spots. Can increase as tolerated
- triglycerides significantly elevated at 1800. on vascepa as OP, but was not on statin? now on lipitor 40mg QPM and zetia in addition to vascepa
- synthroid dose decreased this admission due to elevated TSH
- OP follow up with Dr. Delcid
- encouraged medication compliance
Progress Note - Secured Entrance Monitor
Subjective
Date of Service: March 12, 2025
Patient seen and examined. No acute events overnight. Roughly 1.1 L urine output with stable renal function. Sodium improving. Patient reports no chest pain, shortness of breath, weakness. Neurology following for recent subacute stroke.
Objective
Labs:
03/09/25 06:09
03/12/25 06:04
Labs
Hgb 15.0 g/dL (13.0-18.0) 03/09/25 06:09
Hct 41.9 % (39.0-52.0) 03/09/25 06:09
Plt Count 338 10^3/uL (130-400) 03/09/25 06:09
Sodium 131 mmol/L (135-145) L 03/12/25 06:04
Potassium 4.4 mmol/L (3.5-5.1) 03/12/25 06:04
BUN 26 mg/dl (9-20) H 03/12/25 06:04
Creatinine 0.8 mg/dL (0.7-1.3) 03/12/25 06:04
Glucose 127 mg/dl (70-99) H 03/12/25 06:04
Vital Signs and I&O:
Vital Signs
Temp Pulse Resp BP Pulse Ox
97.7 F 96 16 147/101 97
03/12/25 11:23 03/12/25 11:23 03/12/25 11:23 03/12/25 11:23 03/12/25 11:23
Vital Signs
Temp Pulse Resp BP Pulse Ox
97.7 F 96 16 147/101 97
03/12/25 11:23 03/12/25 11:23 03/12/25 11:23 03/12/25 11:23 03/12/25 11:23
Intake & Output
03/10/25 03/11/25 03/12/25 03/13/25
06:59 06:59 06:59 06:59
Intake Total 960 / 960 840 / 840 600 / 600
Output Total 650 / 650 400 / 400 1725 / 1725
Balance 310 / 310 440 / 440 -1125 / -1125
Physical Exam
Physical Exam
GENERAL: no acute distress, obese
EYE: sclera anicteric
NECK: Supple, no appreciated JVD or carotid bruit due to size/obesity
ENT: normal nose, moist mucosal membranes
CARDIAC: Regular rate and rhythm, +S1/S2, no murmur, rubs, or gallops; left-sided CIED site well-healed no evidence of erythema, swelling, warmth
CHEST/PULMONARY: Normal effort, clear breath sounds
ABDOMEN: Soft, without focal tenderness or distention
NEUROLOGICAL: Alert and oriented x3
SKIN: Warm and dry, no rash; bilateral 1+ pitting edema
PSYCH: Normal and appropriate interaction.
Telemetry atrial sensed, V pacing
[2025-03-12] MEDS: NOVOLOG FLEXPEN-MODERATE RESISTANCE 1 UNITS SC (12:41)
[2025-03-12] MEDS: NOVOLOG FLEXPEN 15 UNITS SC (12:42)
[2025-03-12] MEDS: LANTUS 0.33 UNITS SC (12:43)
[2025-03-12] MEDS: NOVOLOG FLEXPEN SC (12:45)
--- NOTE | 2025-03-12 12:48 | W.PN.NEPH.PH ---
Today's Communication / Plan
-
diurese
Assessment/Plan
-
IMP:
Subacute CVA
Hypertensive emergency
Acute heart failure, cardiomyopathy EF ?30% per pt report
Hypervolemic hyponatremia
Hypertriglyceridemia
no gap met acidosis
Uncontrolled type 2 diabetes with hemoglobin A1c 9.6
Cigar dependency
Hypothyroidism
Anxiety/depression
History of gout
Obesity due to excess calories
possible sleep apnea
Plan:
psuedohyponatremia, no specific tx
FR and IV lasix given EF 15% decompensated
should continue salt restriction
follow BMP
in future, all hyponatremia labs should be qualified with Sosm +/- FLP
on ACEI/MRA
-
-
Date of Service: March 12, 2025
CC / HPI / ROS
-
Chief Complaint:
hyponatremia
History of Present Illness:
Na up to 131
Serum osm 283
EF 15%, on IV lasix for decompensated HFrEF
BP high stable
Review of Systems:
no CP/SOB
Labs
-
Labs:
WBC 10.8 10^3/uL (4.8-10.8) 03/09/25 06:09
RBC 4.90 10^6/uL (4.70-6.10) 03/09/25 06:09
Hgb 15.0 g/dL (13.0-18.0) 03/09/25 06:09
Hct 41.9 % (39.0-52.0) 03/09/25 06:09
Plt Count 338 10^3/uL (130-400) 03/09/25 06:09
Sodium 131 mmol/L (135-145) L 03/12/25 06:04
Potassium 4.4 mmol/L (3.5-5.1) 03/12/25 06:04
Chloride 95 mmol/L (98-107) L 03/12/25 06:04
Carbon Dioxide 29 mmol/L (22-30) 03/12/25 06:04
BUN 26 mg/dl (9-20) H 03/12/25 06:04
Creatinine 0.8 mg/dL (0.7-1.3) 03/12/25 06:04
eGFR > 60.00 03/12/25 06:04
Glucose 127 mg/dl (70-99) H 03/12/25 06:04
Calcium 9.7 mg/dl (8.4-10.2) 03/12/25 06:04
Kly-T-Hqymlkbqoee Pept 1740 pg/ml 03/09/25 06:09
Albumin 4.0 g/dl (3.5-5.0) 03/09/25 06:09
Physical Exam
-
Vital Signs:
Vital Signs
Temp Pulse Resp BP Pulse Ox
97.7 F 96 16 147/101 97
03/12/25 11:23 03/12/25 11:23 03/12/25 11:23 03/12/25 11:23 03/12/25 11:23
Cardiovascular:: Regular rate and rhythm
Respiratory:: Bilateral: Coarse
Lung Excursion:: Normal
Abdomen:: Nontender and Soft
Bowel Sounds:: Normal
Extremity Edema:: +1: Bilateral:
[2025-03-12 16:56] LABS: Glucose - Point of Care 112 mg/dl (70-99)
[2025-03-12] MEDS: LIPITOR 40 MG PO (17:17)
[2025-03-12] MEDS: LOVENOX 80 MG SC (17:18)
[2025-03-12] MEDS: NOVOLOG FLEXPEN 16 UNITS SC (18:23)
[2025-03-12] MEDS: COREG 12.5 MG PO (21:04)
[2025-03-12] MEDS: EFFEXOR XR 150 MG PO (21:08)
[2025-03-12 21:52] LABS: Glucose - Point of Care 96 mg/dl (70-99)
[2025-03-13] VITALS (8 sets, daily range): BP systolic 93–139; BP diastolic 63–87; PULSE 92; O2SAT 96; BMI 40.1
[2025-03-13] MEDS: DESYREL 200 MG PO ×2 (00:06→22:53)
[2025-03-13] MEDS: MELATONIN 5 MG PO ×2 (00:07→22:53)
[2025-03-13] MEDS: BENADRYL 50 MG PO ×2 (00:08→22:54)
[2025-03-13] MEDS: REMERON 15 MG PO ×2 (00:08→22:53)
[2025-03-13] MEDS: SYNTHROID 200 MCG PO (06:01)
[2025-03-13] MEDS: SYNTHROID 50 MCG PO (06:01)
[2025-03-13 06:38] LABS: Blood Urea Nitrogen 27 mg/dl (9-20); Calcium 9.4 mg/dl (8.4-10.2); Carbon Dioxide 31 mmol/L (22-30); Chloride 95 mmol/L (98-107); Estimated Creatinine Clearance 124 ml/min; Glucose 102 mg/dl (70-99); Magnesium 1.8 mg/dl (1.6-2.3); Potassium 4.2 mmol/L (3.5-5.1); Sodium 133 mmol/L (135-145); eGFR > 60.00
[2025-03-13 07:41] LABS: Glucose - Point of Care 108 mg/dl (70-99)
[2025-03-13] MEDS: NOVOLOG FLEXPEN-MODERATE RESISTANCE SC ×2 (08:36→16:03)
[2025-03-13] MEDS: NOVOLOG FLEXPEN 14 UNITS SC (08:48)
[2025-03-13] MEDS: LASIX 40 MG IV (08:49)
[2025-03-13] MEDS: ALDACTONE 25 MG PO (08:49)
[2025-03-13] MEDS: DEPAKOTE (12 HR RELEASE) 1000 MG PO ×2 (08:49→20:32)
[2025-03-13] MEDS: EFFEXOR XR 300 MG PO (08:49)
[2025-03-13] MEDS: COREG 12.5 MG PO ×2 (08:49→20:25)
[2025-03-13] MEDS: ZETIA 10 MG PO (08:50)
[2025-03-13] MEDS: WELLBUTRIN XL (24 hour extended release) 150 MG PO (08:50)
[2025-03-13] MEDS: PLAVIX 75 MG PO (08:50)
[2025-03-13] MEDS: ZESTRIL 20 MG PO (08:50)
[2025-03-13] MEDS: ZYLOPRIM 100 MG PO (08:50)
[2025-03-13] MEDS: LOW STRENGTH ASPIRIN 81 MG PO (08:50)
--- NOTE | 2025-03-13 10:50 | W.PN.HOSP.TC ---
Today's Communication/Plan
-
see bold
Assessment / Plan
Assessment / Plan
HPI: 59-year-old male with a past medical history of stroke, hypertension, diabetes, CHF, hypothyroidism, gout, anxiety/depression, and obesity who presents with a 2-3-day history of right parietal headache with vision changes. Patient denies
dysphagia, denies dysarthria, denies weakness. No double vision. He reports that the peripheral vision on his right eye is faded. He was found to be hypertensive in the ER, with a head CT showing subacute stroke. Patient also complains of
shortness of breath for 5 days. He denies any weight gain, denies missing his Aldactone. He is not on Lasix at home. He denies coughing, denies wheezing.
#Subacute CVA
Head CT shows 'Moderate to large sized area of slight decreased attenuation in the left posterior parietal-occipital region likely representing a subacute nonhemorrhagic infarct'
Out of the window for permissive hypertension, treat blood pressure as below
He is on aspirin 325 mg daily at home, unclear why
Changed to aspirin 81 mg daily, started Plavix 75 mg daily for 21 days through 03/30, started Zetia and atorvastatin
Treat diabetes that is uncontrolled, as below
Treat hypertriglyceridemia as below
Neurology following, PT/OT - rec HH
#Hypertensive emergency
Decrease lisinopril 10 mg daily, continue spironolactone 25 mg daily
Cardiology added Coreg 12.5 mg twice a day
#Acute heart failure with a reduced ejection fraction
#Bilateral lower extremity edema
CXR neg, BNP 1740, 03/10 echo EF 15%
Patient follows with Dr. Delcid at [place], records requested
Cardiology added Coreg 12.5 mg twice a day
Increased Lasix 40 mg IV BID, continue spironolactone 25 mg daily
Lower extremity Dopplers neg
Trend creatinine, trend daily weights
#Pseudohyponatremia
TSH/am cortisol normal, urine studies reviewed
Appreciate nephrology input, pseudohyponatremia due to hypertriglyceridemia
#Hypertriglyceridemia
Triglycerides 1865, LDL 35 is an accurate
Patient on Vascepa at home
Started Zetia and atorvastatin
#Uncontrolled type 2 diabetes with hemoglobin A1c 9.6
Blood sugars much improved on current regimen, continue Lantus 33 units daily at noon, Premeal insulin
Diabetic diet, sliding scale insulin, insulin teaching -patient will need to continue insulin upon discharge
Patient has also been seen by the copy camera operator
#Hypomagnesemia
Repleted and resolved
#Cigar dependency
Quit smoking 15 years ago, now smokes 1 cigar a day
Cigar cessation counseling has been provided
#Hypothyroidism
TSH 18.4, free T4 normal
Currently on levothyroxine 225 mcg daily, now increased to 250 mcg daily
Repeat thyroid function test in 4-6 weeks
#History of seizure disorder
Continue Depakote
#Anxiety/depression
Continue mirtazapine, Wellbutrin
#History of gout
Continue allopurinol
#Obesity due to excess calories
Affects all aspects of care
DVT prophylaxis�subcu Lovenox
Full Code
Total time spent to see the patient on the floor, examine the patient, review data and lab results, discuss treatment plan with patient, nursing staff around 50 minutes.
Updated family at bedside 03/13
Physical Exam
General: Obese, no acute distress
HEENT: Normocephalic, Atraumatic, EOMI, MMM
Respiratory: Clear to Auscultation bilaterally
Cardiac: Normal S1/S2, Regular Rate and Rhythm
GI: Soft, Nontender, Nondistended, Normal Bowel Sounds
Extremities: No Clubbing, Cyanosis
Bilateral lower extremity edema noted
Neuro: Nonfocal/Grossly Intact
Psych: Calm, Cooperative
Anticipated Discharge: 24 - 48 hours
Subjective/Interval History
-
Date of Service: March 13, 2025
Patient's right visual deficit has improved. His dyspnea with activity has also improved. Denies shortness of breath at rest. Denies chest pain. No fever, no vomiting.
Objective Data
-
Labs:
Laboratory Results
03/13/25
05:29
Sodium 133 L
Potassium 4.2
Chloride 95 L
Carbon Dioxide 31 H
BUN 27 H
Creatinine 1.0
Glucose 102 H
Calcium 9.4
Vital Signs:
Vital Signs
Temp Pulse Resp BP Pulse Ox
98.2 F 93 19 111/63 95
03/13/25 08:06 03/13/25 08:06 03/13/25 08:06 03/13/25 08:06 03/13/25 08:15
I&O
03/12/25 03/13/25 03/14/25
06:59 06:59 06:59
Intake Total 600 / 600
Output Total 1725 / 1725
Balance -1125 / -1125
--- NOTE | 2025-03-13 11:21 | W.PN.CARDCBS ---
Today's Communication / Plan
-
IV diuresis with monitoring intake output, weight, electrolytes, renal function
Continue goal-directed medical therapy for cardiomyopathy
Impression / Plan
-
Primary Oil Expeller: Dr. Delcid of [facility]
Assessment:
Presentation with headache, visual changes
Subacute L CVA
Hypertensive emergency, improved
Acute on chronic heart failure with reduced EF
History of SVT ablation in 1993
Intermittent complete heart block resulting in [employer] dual-chamber pacemaker placement
lead dislodgment and revision in 2011
NICM diagnosed 2012 with upgrade of device to [employer] BiV ICD
History of right parietal CVA in 2015
History of seizure disorder
Type 2 diabetes
Hypertension
Hyperlipidemia/Hypertriglyceridemia
Hypothyroidism
Gout
Depression/anxiety
Obesity
Med noncompliance
ECHO 2019: Technically difficult study, moderately dilated LV, LVSF severely reduced however impossible to comment upon segmental wall motion given limitations of study, severe global hypokinesis of LV
ECHO 03/10/2025: Technically difficult study, EF 15%, stage I diastolic dysfunction, mildly dilated RA, mild MR, PAP 22 mmHg
Plan:
- Patient presents with headache and visual changes and is found by head CT to have subacute left CVA. Also with hypertensive emergency, likely secondary to medication noncompliance over the last 2 months
- Recommendations post CVA per neurology. on asa, plavix
- Cardiology consulted due to concern for acute on chronic congestive heart failure with proBNP of 1740.
- Continue IV Lasix 40 mg daily. Creatinine stable at 0.8, defer to nephrology
- Follow hyponatremia in the setting of diuresis. Nephrology following
- Echo with results as above, EF 15%. Upon review of prior records obtained and reviewed from [facility], EF was significantly reduced in past
- By last office note dated 2022 patient was on carvedilol 25 mg twice daily, Entresto 49/41 mg twice daily, spironolactone 25 mg daily. currently restarted on spironolactone 25mg daily and lisinopril 20mg daily added by primary service. Continue
carvedilol at 12.5 mg twice daily (previously 25 mg twice daily) monitor spots. BP now stable on carvedilol 12.5 mg twice daily
- triglycerides significantly elevated at 1800. on vascepa as OP, but was not on statin? now on lipitor 40mg QPM and zetia in addition to vascepa
- synthroid dose decreased this admission due to elevated TSH
- OP follow up with Dr. Delcid
- encouraged medication compliance
Progress Note - Oil Expeller
Subjective
Date of Service: March 13, 2025
Patient seen and examined. No acute events overnight. Patient resting comfortably in bed. Denies chest pain, palpitations, weakness. Notes mild shortness of breath and lower extremity swelling.
Objective
Labs:
03/09/25 06:09
03/13/25 05:29
Labs
Hgb 15.0 g/dL (13.0-18.0) 03/09/25 06:09
Hct 41.9 % (39.0-52.0) 03/09/25 06:09
Plt Count 338 10^3/uL (130-400) 03/09/25 06:09
Sodium 133 mmol/L (135-145) L 03/13/25 05:29
Potassium 4.2 mmol/L (3.5-5.1) 03/13/25 05:29
BUN 27 mg/dl (9-20) H 03/13/25 05:29
Creatinine 1.0 mg/dL (0.7-1.3) 03/13/25 05:29
Glucose 102 mg/dl (70-99) H 03/13/25 05:29
Vital Signs and I&O:
Vital Signs
Temp Pulse Resp BP Pulse Ox
98.2 F 93 19 111/63 95
03/13/25 08:06 03/13/25 08:06 03/13/25 08:06 03/13/25 08:06 03/13/25 08:15
Vital Signs
Temp Pulse Resp BP Pulse Ox
98.2 F 93 19 111/63 95
03/13/25 08:06 03/13/25 08:06 03/13/25 08:06 03/13/25 08:06 03/13/25 08:15
Intake & Output
03/11/25 03/12/25 03/13/25 03/14/25
06:59 06:59 06:59 06:59
Intake Total 840 / 840 600 / 600
Output Total 400 / 400 1725 / 1725
Balance 440 / 440 -1125 / -1125
Physical Exam
Physical Exam
GENERAL: no acute distress, obese
EYE: sclera anicteric
NECK: Supple, no appreciated JVD or carotid bruit due to size/obesity
ENT: normal nose, moist mucosal membranes
CARDIAC: Regular rate and rhythm, +S1/S2, no murmur, rubs, or gallops; left-sided CIED site well-healed no evidence of erythema, swelling, warmth
CHEST/PULMONARY: Normal effort, clear breath sounds
ABDOMEN: Soft, without focal tenderness or distention
NEUROLOGICAL: Alert and oriented x3
SKIN: Warm and dry, no rash; bilateral 1+ pitting edema
PSYCH: Normal and appropriate interaction.
Telemetry atrial sensed, V pacing
[2025-03-13 11:35] LABS: Glucose - Point of Care 171 mg/dl (70-99)
[2025-03-13] MEDS: LANTUS 0.33 UNITS SC (12:40)
[2025-03-13] MEDS: NOVOLOG FLEXPEN-MODERATE RESISTANCE 1 UNITS SC (12:42)
[2025-03-13] MEDS: NOVOLOG FLEXPEN 15 UNITS SC ×2 (12:43→16:11)
--- NOTE | 2025-03-13 13:51 | W.PN.NEPH.PH ---
Today's Communication / Plan
-
po lasix
Assessment/Plan
-
IMP:
Subacute CVA
Hypertensive emergency
Acute heart failure, cardiomyopathy EF ?30% per pt report
Hypervolemic hyponatremia
Hypertriglyceridemia
no gap met acidosis
Uncontrolled type 2 diabetes with hemoglobin A1c 9.6
Cigar dependency
Hypothyroidism
Anxiety/depression
History of gout
Obesity due to excess calories
possible sleep apnea
Plan:
switch to po lasix
continue acei, MRA
follow BMP
-
-
Date of Service: March 13, 2025
CC / HPI / ROS
-
Chief Complaint:
hyponatremia
History of Present Illness:
Na up to 133
EF 15%, on IV lasix for decompensated HFrEF
BP high stable
Review of Systems:
no CP/SOB
Labs
-
Labs:
WBC 10.8 10^3/uL (4.8-10.8) 03/09/25 06:09
RBC 4.90 10^6/uL (4.70-6.10) 03/09/25 06:09
Hgb 15.0 g/dL (13.0-18.0) 03/09/25 06:09
Hct 41.9 % (39.0-52.0) 03/09/25 06:09
Plt Count 338 10^3/uL (130-400) 03/09/25 06:09
Sodium 133 mmol/L (135-145) L 03/13/25 05:29
Potassium 4.2 mmol/L (3.5-5.1) 03/13/25 05:29
Chloride 95 mmol/L (98-107) L 03/13/25 05:29
Carbon Dioxide 31 mmol/L (22-30) H 03/13/25 05:29
BUN 27 mg/dl (9-20) H 03/13/25 05:29
Creatinine 1.0 mg/dL (0.7-1.3) 03/13/25 05:29
eGFR > 60.00 03/13/25 05:29
Glucose 102 mg/dl (70-99) H 03/13/25 05:29
Calcium 9.4 mg/dl (8.4-10.2) 03/13/25 05:29
Phq-X-Wdhjivdijui Pept 1740 pg/ml 03/09/25 06:09
Albumin 4.0 g/dl (3.5-5.0) 03/09/25 06:09
Physical Exam
-
Vital Signs:
Vital Signs
Temp Pulse Resp BP Pulse Ox
97.4 F 84 19 97/64 94
03/13/25 12:29 03/13/25 12:29 03/13/25 12:29 03/13/25 12:29 03/13/25 12:29
Cardiovascular:: Regular rate and rhythm
Respiratory:: Bilateral: Coarse
Lung Excursion:: Normal
Abdomen:: Nontender and Soft
Bowel Sounds:: Normal
Extremity Edema:: +1: Bilateral:
--- NOTE | 2025-03-13 14:28 | CM ---
Addendum entered by Fabby Arriaga RN 03/14/25 15:42:
Pt stated he was able to move up his new-pt appt with PCP to 03/24. [facility] Intake confirmed Dr Nicholson will sign for VN until pt starts w/new PCP. Will watch for DC date. Pt cooperative and aware that [facility] will call him prior to home visit.
Original Note:
Patient seen at bedside
Prefer [facility] - referral placed in [facility]
Patient did state that Dr. Nicholson was his PCP and he retired, has an appt with Kylah Alanis on 04/06
discussed with patient will need to call Kylah Alanis ([facility]) and move up appt as will need pcp for home health
tobacco educator consult ordered - on insulin
hospitalist discussed will need pricing of medications, as he had stopped Enestro in past
PLAN: home when stable, [facility] if accepted in [facility], CM to continue to follow
[2025-03-13 15:59] LABS: Glucose - Point of Care 144 mg/dl (70-99)
[2025-03-13] MEDS: LASIX 80 MG PO (16:10)
[2025-03-13] MEDS: LOVENOX 80 MG SC (17:00)
[2025-03-13] MEDS: LIPITOR 40 MG PO (17:00)
[2025-03-13] MEDS: EFFEXOR XR 150 MG PO (20:27)
[2025-03-13 22:07] LABS: Glucose - Point of Care 148 mg/dl (70-99)
[2025-03-14 03:52] VITALS: BP 118/73
[2025-03-14] MEDS: SYNTHROID 50 MCG PO (05:22)
[2025-03-14] MEDS: SYNTHROID 200 MCG PO (05:22)
[2025-03-14 06:00] VITALS: BMI 40.0
[2025-03-14] MEDS: TYLENOL 650 MG PO (06:16)
[2025-03-14 07:14] LABS: Glucose - Point of Care 136 mg/dl (70-99)
[2025-03-14] MEDS: NOVOLOG FLEXPEN-MODERATE RESISTANCE SC (07:14)
[2025-03-14] MEDS: NOVOLOG FLEXPEN 15 UNITS SC ×3 (07:22→17:03)
[2025-03-14 07:23] LABS: Blood Urea Nitrogen 26 mg/dl (9-20); Calcium 9.4 mg/dl (8.4-10.2); Carbon Dioxide 34 mmol/L (22-30); Chloride 95 mmol/L (98-107); Estimated Creatinine Clearance 113 ml/min; Glucose 127 mg/dl (70-99); Potassium 5.0 mmol/L (3.5-5.1); Sodium 135 mmol/L (135-145); eGFR > 60.00
[2025-03-14] MEDS: DEPAKOTE (12 HR RELEASE) 1000 MG PO ×2 (07:23→19:10)
[2025-03-14] MEDS: WELLBUTRIN XL (24 hour extended release) 150 MG PO (07:23)
[2025-03-14] MEDS: PLAVIX 75 MG PO (07:23)
[2025-03-14] MEDS: LOW STRENGTH ASPIRIN 81 MG PO (07:23)
[2025-03-14] MEDS: EFFEXOR XR 300 MG PO (07:23)
[2025-03-14] MEDS: LASIX 80 MG PO ×2 (07:23→16:16)
[2025-03-14] MEDS: ZYLOPRIM 100 MG PO (07:23)
[2025-03-14] MEDS: ZESTRIL 10 MG PO (07:23)
[2025-03-14] MEDS: ALDACTONE 25 MG PO (07:23)
[2025-03-14 07:24] VITALS: BP 114/77
[2025-03-14] MEDS: ZETIA 10 MG PO (07:55)
[2025-03-14] MEDS: COREG 12.5 MG PO ×2 (07:55→19:10)
--- NOTE | 2025-03-14 07:57 | W.PN.HOSP.TC ---
Today's Communication/Plan
-
continue glycemic control
discharge planning
Assessment / Plan
Assessment / Plan
Physical Exam
General: Obese, no acute distress
HEENT: Normocephalic, Atraumatic, EOMI, MMM
Respiratory: Clear to Auscultation bilaterally
Cardiac: Normal S1/S2, Regular Rate and Rhythm
GI: Soft, Nontender, Nondistended, Normal Bowel Sounds
Extremities: No Clubbing, Cyanosis
Bilateral lower extremity edema noted
Neuro: Nonfocal/Grossly Intact
Psych: Calm, Cooperative
HPI: 59-year-old male with a past medical history of stroke, hypertension, diabetes, CHF, hypothyroidism, gout, anxiety/depression, and obesity who presents with a 2-3-day history of right parietal headache with vision changes. Patient denies
dysphagia, denies dysarthria, denies weakness. No double vision. He reports that the peripheral vision on his right eye is faded. He was found to be hypertensive in the ER, with a head CT showing subacute stroke. Patient also complains of
shortness of breath for 5 days. He denies any weight gain, denies missing his Aldactone. He is not on Lasix at home. He denies coughing, denies wheezing.
#Subacute CVA
Head CT shows 'Moderate to large sized area of slight decreased attenuation in the left posterior parietal-occipital region likely representing a subacute nonhemorrhagic infarct'
Out of the window for permissive hypertension, treat blood pressure as below
He is on aspirin 325 mg daily at home, unclear why
Changed to aspirin 81 mg daily, started Plavix 75 mg daily for 21 days through 03/30, started Zetia and atorvastatin
Treat diabetes that is uncontrolled, as below
Treat hypertriglyceridemia as below
Neurology following, PT/OT - rec HH
#Hypertensive emergency
Decrease lisinopril 10 mg daily, continue spironolactone 25 mg daily
Cardiology added Coreg 12.5 mg twice a day
#Acute heart failure with a reduced ejection fraction
#Bilateral lower extremity edema
CXR neg, BNP 1740, 03/10 echo EF 15%
Patient follows with Dr. Delcid at [place], records requested
Cardiology added Coreg 12.5 mg twice a day
continue spironolactone 25 mg daily
PO Lasix 80 mg BID
Lower extremity Dopplers neg
Trend creatinine, trend daily weights
#Pseudohyponatremia
TSH/am cortisol normal, urine studies reviewed
Appreciate nephrology input, pseudohyponatremia due to hypertriglyceridemia
#Hypertriglyceridemia
Triglycerides 5, LDL 35 is an accurate
Patient on Vascepa at home
Started Zetia and atorvastatin
#Uncontrolled type 2 diabetes with hemoglobin A1c 9.6
Blood sugars much improved on current regimen, continue Lantus 33 units daily at noon, Premeal insulin
Diabetic diet, sliding scale insulin, insulin teaching -patient will need to continue insulin upon discharge
Patient has also been seen by the decorating machine tender
#Hypomagnesemia
Repleted and resolved
#Cigar dependency
Quit smoking 15 years ago, now smokes 1 cigar a day
Cigar cessation counseling has been provided
#Hypothyroidism
TSH 18.4, free T4 normal
Currently on levothyroxine 225 mcg daily, now increased to 250 mcg daily
Repeat thyroid function test in 4-6 weeks
#History of seizure disorder
Continue Depakote
#Anxiety/depression
Continue mirtazapine, Wellbutrin
#History of gout
Continue allopurinol
#Obesity due to excess calories
Affects all aspects of care
DVT prophylaxis�subcu Lovenox
Full Code
Total time spent to see the patient on the floor, examine the patient, review data and lab results, discuss treatment plan with patient, nursing staff around 40 minutes.
Anticipated Discharge: Within 24 hours
Subjective/Interval History
-
Date of Service: March 14, 2025
No acute distress, overall reports feeling well. Able to ambulate to and from bathroom without need for assist device.
Objective Data
-
Labs:
Laboratory Results
03/14/25
05:57
Sodium 135
Potassium 5.0
Chloride 95 L
Carbon Dioxide 34 H
BUN 26 H
Creatinine 1.1
Glucose 127 H
Calcium 9.4
Vital Signs:
Vital Signs
Temp Pulse Resp BP Pulse Ox
97.9 F 92 16 114/77 96
03/14/25 07:24 03/14/25 07:24 03/14/25 07:24 03/14/25 07:24 03/14/25 07:24
I&O
03/13/25 03/14/25 03/15/25
06:59 06:59 06:59
Intake Total 2039 / 2039
Output Total 475 / 475
Balance 1565 / 1565
--- NOTE | 2025-03-14 10:46 | VNURNOTE ---
Addendum entered by Fabby Arriaga, RN 03/15/25 09:09:
Confirmed with pt that he moved up his new PCP appt w/Janeen Gomez at [facility] Intake updated.
Original Note:
Home Health Liaison met with patient at bedside to discuss [facility] nurse/therapy, visits, schedule and homebound status. Patient is agreeable and understands that visits at home will be 2-3 x per week to assess and teach medical management. Patient
is aware that [facility] will contact them for start of care in 1-2 days after discharge from . Pt stated his PCP Dr Nicholson retired - he last saw him 2 years ago. He has a new-pt appt with Janeen Bliss/Kylah Alanis. Requested that
pt call new PCP and request an earlier appt if possible. VN would need overseeing PCP to sign for them in the community. Pt agreeable to call. Liaison will follow up later for update.
[facility] referral accepted in [facility].
[2025-03-14 11:13] VITALS: BP 112/71
[2025-03-14 11:49] LABS: Glucose - Point of Care 166 mg/dl (70-99)
--- NOTE | 2025-03-14 12:21 | W.PN.CARDCBS ---
Addendum entered and electronically signed by Morgan Valentin MD 03/14/25 18:44:
59-year-old man admitted with new left posterior parietal and occipital CVA and acute on chronic HFrEF
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
depression anxiety, obesity
Current meds: Wellbutrin, allopurinol 100 mg a day, levothyroxine 250mcg daily, Remeron 15 mg at bedtime, spironolactone 25 mg a day, trazodone 200 mg , venlafaxine 300 mg a day, aspirin 81 mg daily, clopidogrel 75 mg daily, atorvastatin 40 mg daily
ezetimibe 10 mg daily enoxaparin 80 mg subcu every afternoon, Benadryl, Lantus, carvedilol 12.5 twice daily, lisinopril 10 mg a day, furosemide 80 mg p.o. twice daily, metformin
102/76, Pulse 80s, respiratory rate 16, saturations 95%, weight is 145.5 Kg, had been 151 on admission, pleasant, no distress, diminished breath sounds in bases, regular rate and rhythm, no obvious murmurs JVD difficult to assess 1+ to 2+ edema
Echo 03/10/25: mildly dilated ventricle, global hypokinesis, EF 15%, mildly dilated left atrium and right atrium, mild MR, pulmonary artery systolic pressure is normal
ICD interrogation 03/09/2025: No arrhythmia, no impedance data, longevity 10 to 12 months
Potassium 5.0, BUN/creatinine are 26 and 1.1, proBNP was 1740 on admission
Impression:
Subacute left hemispheric stroke
Hypertensive emergency likely related to above,
Acute on chronic HFrEF
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
Remote right parietal stroke
Seizure disorder
Diabetes
Hypertension
Mixed hyperlipidemia
Hypothyroidism
Gout
Depression anxiety
Morbid obesity
History of SVT ablation
Plan:
Cardiac status overall stable, with impressive polypharmacy. Volume status on exam is difficult to assess, but not in overt distress.
No atrial fibrillation on ICD histograms to explain stroke. Presumably stroke is atherothrombotic. Anticoagulant/antiplatelet regimen to consist of aspirin and Plavix with de-escalation to aspirin in several weeks.
Patient not currently on SGLT2 antagonist, likely cost prohibitive, similarly would benefit from GLP-1 agonist with regards to weight loss but may not be of benefit in HFrEF as opposed to HFpEF.
Will make arrangements for follow-up to patient's primary interior design teacher Dr. Delcid.
Addendum entered and electronically signed by Cynthia Krishnan PA-C 03/14/25 17:10:
Addendum to below.
Patient has [employer] ICD not pacemaker
Interrogation performed 03/14/2024 by device rep. Patient has BiV ICD device functioning appropriately with stable lead and threshold. No atrial fibrillation or ventricular tachycardia noted. Battery reserve 10 to 12 months. Not pacemaker
dependent but has underlying 2-1 heart block. Not MRI compatible as atrial and ventricular leads are [employer]
Original Note:
Today's Communication / Plan
-
Continue Coreg, Aldactone, lisinopril
New to atorvastatin and Zetia this admission
Aspirin and Plavix x 21 days then aspirin alone per neurology
ICD interrogation
Will arrange for outpatient cardiology follow-up with Dr. Delcid
Impression / Plan
-
Primary Managing Principal: Dr. Delcid of [facility]
Assessment:
Presentation 03/09/2025 with headache, visual changes
Subacute L CVA
Hypertensive emergency, improved
Acute on chronic heart failure with reduced EF
History of SVT ablation in 1993
Intermittent complete heart block resulting in [employer] dual-chamber pacemaker placement
lead dislodgment and revision in 2011
NICM diagnosed 2012 with upgrade of device to [employer] BiV ICD
History of right parietal CVA in 2015
History of seizure disorder
Type 2 diabetes
Hypertension
Hyperlipidemia/Hypertriglyceridemia
Hypothyroidism
Gout
Depression/anxiety
Obesity
Med noncompliance
ECHO 2019: Technically difficult study, moderately dilated LV, LVSF severely reduced however impossible to comment upon segmental wall motion given limitations of study, severe global hypokinesis of LV
ECHO 03/10/2025: Technically difficult study, EF 15%, stage I diastolic dysfunction, mildly dilated RA, mild MR, PAP 22 mmHg
Plan:
- Patient presented 03/09/2025 with headache and visual changes and is found by head CT to have subacute left CVA. Also with hypertensive emergency, likely secondary to medication noncompliance over the last 2 months
- Recommendations post CVA per neurology. Continue on asa, plavix for 21 days then ASA alone per neprhology
- Cardiology consulted due to concern for acute on chronic congestive heart failure with proBNP of 1740.
- Weight down 7 to 8 pounds if scale correct since admission. Nephrology has transitioned patient to Lasix 80 mg p.o. twice daily.
- Hyponatremia likely secondary to diuresis, has improved.
- Echo with results as above, EF 15%. Upon review of prior records obtained and reviewed from [facility], EF was significantly reduced in past
- Blood pressure significantly improved back on Aldactone 25 mg, lisinopril 10 mg and Coreg 12.5 mg twice a day. Blood pressure currently not allowing for up titration of medication. Can consider up titration or adjustment as outpatient. Previous
outpatient cardiology office note dated 2022 patient was on carvedilol 25 mg twice daily, Entresto 49/41 mg twice daily, spironolactone 25 mg daily.
- triglycerides significantly elevated at 1800. on vascepa as OP, but was not on statin? Prestatin lipids TC 265, HDL 40, LDL 35, triglycerides 1865. New to Lipitor 40mg QPM and zetia this admission in addition to vascepa. LDL goal <70
- synthroid dose decreased this admission due to elevated TSH
- Patient has [employer] biventricular ICD. We will see if [employer] rep can interrogate device.
- encouraged medication compliance
History of Present Illness 03/11/2025:
Patient is a 59-year-old male with past medical history of hypothyroidism, SVT ablation in 1993, subsequent intermittent complete heart block resulting in [employer] dual-chamber pacemaker placement, then with lead dislodgment and revision in 2011,
nonischemic cardiomyopathy diagnosed in 2012 with subsequent upgrade of device to a [employer] BiV ICD, right parietal CVA in 2016, type 2 diabetes, hyperlipidemia, chronic heart failure with reduced EF who presents to [facility] due to evaluation of
headache and visual changes. He reports for the last several months he has not been taking his medications as he ran out. He has not been seen by his interior design teacher Dr. Delcid for some time, and states he was having financial issues with an
outstanding balance at Dr. Delcid's office, and therefore did not want to schedule follow-up, but was told he could not get refills of his medicines without coming in to be seen. Head CT showed moderate to large size area of decreased attenuation
in left posterior parietal occipital region representing subacute nonhemorrhagic infarct. Also presented with hypertensive emergency.
Progress Note - Managing Principal
Subjective
Date of Service: March 14, 2025
Patient seen and examined. Patient sitting on edge of bed reporting he is feeling well. Denies chest pain, shortness of breath, dizziness or lightheadedness
Objective
Labs:
03/09/25 06:09
03/14/25 05:57
Labs
Hgb 15.0 g/dL (13.0-18.0) 03/09/25 06:09
Hct 41.9 % (39.0-52.0) 03/09/25 06:09
Plt Count 338 10^3/uL (130-400) 03/09/25 06:09
Sodium 135 mmol/L (135-145) 03/14/25 05:57
Potassium 5.0 mmol/L (3.5-5.1) 03/14/25 05:57
BUN 26 mg/dl (9-20) H 03/14/25 05:57
Creatinine 1.1 mg/dL (0.7-1.3) 03/14/25 05:57
Glucose 127 mg/dl (70-99) H 03/14/25 05:57
Vital Signs and I&O:
Vital Signs
Temp Pulse Resp BP Pulse Ox
98.4 F 83 16 112/71 96
03/14/25 11:13 03/14/25 11:13 03/14/25 11:13 03/14/25 11:13 03/14/25 11:13
Vital Signs
Temp Pulse Resp BP Pulse Ox
98.4 F 83 16 112/71 96
03/14/25 11:13 03/14/25 11:13 03/14/25 11:13 03/14/25 11:13 03/14/25 11:13
Intake & Output
03/12/25 03/13/25 03/14/25 03/15/25
06:59 06:59 06:59 06:59
Intake Total 600 / 600 2040 / 2040
Output Total 1725 / 1725 475 / 475
Balance -1125 / -1125 1565 / 1565
Physical Exam
Physical Exam
GEN: No distress, awake, Ox3, sitting on edge of bed
HEENT: supple, anicteric, mmm
LUNGS: CTA, no wheezes/rales
CV: Reg with occasional ectopy, S1/S2, no murmur, rub or gallop
ABD: soft, BS+, NT/ND
EXT: No edema, clubbing or cyanosis
NEURO: Gross non-focal
SKIN: No rash, warm, dry, pink
[2025-03-14] MEDS: LANTUS 0.33 UNITS SC (12:45)
[2025-03-14] MEDS: NOVOLOG FLEXPEN-MODERATE RESISTANCE 1 UNITS SC (12:46)
[2025-03-14 13:56] VITALS: BP 128/89; BP 98/65; PULSE 90; PULSE 96
--- NOTE | 2025-03-14 14:49 | W.PN.NEPH.PH ---
Today's Communication / Plan
-
Continue Lasix
Assessment/Plan
-
IMP:
Subacute CVA
Hypertensive emergency
Acute heart failure, cardiomyopathy EF ?30% per pt report
Hypervolemic hyponatremia
Hypertriglyceridemia
no gap met acidosis
Uncontrolled type 2 diabetes with hemoglobin A1c 9.6
Cigar dependency
Hypothyroidism
Anxiety/depression
History of gout
Obesity due to excess calories
possible sleep apnea
Plan:
continue acei, MRA
Creatinine 1.1. Sodium 133 with Lasix p.o. twice daily
follow BMP
-
-
Date of Service: March 14, 2025
CC / HPI / ROS
-
Chief Complaint:
hyponatremia
History of Present Illness:
Na up to 133
EF 15%, on IV lasix for decompensated HFrEF
BP high stable
Review of Systems:
no CP/SOB
Labs
-
Labs:
WBC 10.8 10^3/uL (4.8-10.8) 03/09/25 06:09
RBC 4.90 10^6/uL (4.70-6.10) 03/09/25 06:09
Hgb 15.0 g/dL (13.0-18.0) 03/09/25 06:09
Hct 41.9 % (39.0-52.0) 03/09/25 06:09
Plt Count 338 10^3/uL (130-400) 03/09/25 06:09
Sodium 135 mmol/L (135-145) 03/14/25 05:57
Potassium 5.0 mmol/L (3.5-5.1) 03/14/25 05:57
Chloride 95 mmol/L (98-107) L 03/14/25 05:57
Carbon Dioxide 34 mmol/L (22-30) H 03/14/25 05:57
BUN 26 mg/dl (9-20) H 03/14/25 05:57
Creatinine 1.1 mg/dL (0.7-1.3) 03/14/25 05:57
eGFR > 60.00 03/14/25 05:57
Glucose 127 mg/dl (70-99) H 03/14/25 05:57
Calcium 9.4 mg/dl (8.4-10.2) 03/14/25 05:57
Uwa-T-Mlbqrqahgpn Pept 1740 pg/ml 03/09/25 06:09
Albumin 4.0 g/dl (3.5-5.0) 03/09/25 06:09
Physical Exam
-
Vital Signs:
Vital Signs
Temp Pulse Resp BP Pulse Ox
98.4 F 83 16 112/71 96
03/14/25 11:13 03/14/25 11:13 03/14/25 11:13 03/14/25 11:13 03/14/25 11:13
Cardiovascular:: Regular rate and rhythm
Respiratory:: Bilateral: Coarse
Lung Excursion:: Normal
Abdomen:: Nontender and Soft
Bowel Sounds:: Normal
Extremity Edema:: +1: Bilateral:
[2025-03-14 15:32] VITALS: BP 102/76
[2025-03-14 16:30] LABS: Glucose - Point of Care 227 mg/dl (70-99)
[2025-03-14] MEDS: GLUCOPHAGE 1000 MG PO (17:01)
[2025-03-14] MEDS: LOVENOX 80 MG SC (17:01)
[2025-03-14] MEDS: LIPITOR 40 MG PO (17:01)
[2025-03-14] MEDS: NOVOLOG FLEXPEN-MODERATE RESISTANCE 3 UNITS SC (17:03)
--- NOTE | 2025-03-14 17:10 | W.CARD.DEVCH ---
Cardiac Device Check
-
Device: Implanted Cardioverter-Defibrillator ([employer] BiV-ICD)
[employer]: [employer]
The patient's device was interrogated with assistance of the device sales representative malt liquors followed by a complete physician review. The device had normal function. No abnormalities seen. No ventricular or atrial arrhythmias. At 10 to 12 months on battery.
Patient is not pacemaker dependent but does have underlying 2-1 heart block
[2025-03-14] MEDS: EFFEXOR XR 150 MG PO (19:08)
[2025-03-14] MEDS: MELATONIN 5 MG PO (21:06)
[2025-03-14] MEDS: BENADRYL 50 MG PO (21:06)
[2025-03-14] MEDS: REMERON 15 MG PO (21:06)
[2025-03-14] MEDS: DESYREL 200 MG PO (21:06)
[2025-03-14 22:04] LABS: Glucose - Point of Care 228 mg/dl (70-99)
[2025-03-14 23:57] VITALS: BP 102/53
[2025-03-15] MEDS: SYNTHROID 50 MCG PO (05:20)
[2025-03-15] MEDS: SYNTHROID 200 MCG PO (05:20)
[2025-03-15 07:25] VITALS: BP 115/65
--- NOTE | 2025-03-15 07:47 | W.PN.HOSP.TC ---
Today's Communication/Plan
-
discharge
Assessment / Plan
Assessment / Plan
Physical Exam
General: Obese, no acute distress
HEENT: Normocephalic, Atraumatic, EOMI, MMM
Respiratory: Clear to Auscultation bilaterally
Cardiac: Normal S1/S2, Regular Rate and Rhythm
GI: Soft, Nontender, Nondistended, Normal Bowel Sounds
Extremities: No Clubbing, Cyanosis
Bilateral lower extremity edema noted
Neuro: Nonfocal/Grossly Intact
Psych: Calm, Cooperative
HPI: 59M hx CVA, HTN, DM, CHF, hypothyroidism, gout, anxiety/depression, Obesity who presents with a 2-3-day hx of right parietal headache with vision changes. Patient denied dysphagia, dysarthria, weakness. No double vision. He reported that the
peripheral vision on his right eye has faded. He was found to be hypertensive in the ER, with a head CT showing subacute stroke. Patient also complained of shortness of breath for 5 days. He denied any weight gain, reported compliance w/
medications. Not on Lasix at home.
#Subacute CVA
Head CT showed Moderate to large sized left posterior parietal-occipital region subacute nonhemorrhagic infarct
He is on aspirin 325 mg daily at home, unclear why
Changed to aspirin 81 mg daily, started Plavix 75 mg daily for 21 days through 03/30, started Zetia and atorvastatin
uncontrolled diabetes tx as below
HLD tx as below
Neurology eval appreciated
PT/OT appreciated home health
#Hypertensive emergency
Decrease lisinopril 10 mg daily, continue spironolactone 25 mg daily
Cardiology added Coreg 12.5 mg twice a day
#Acute heart failure with a reduced ejection fraction
#Bilateral lower extremity edema
CXR neg, BNP 1740, 03/10 echo EF 15%
Patient follows with Dr. Delcid at [place], records requested
Cardiology added Coreg 12.5 mg twice a day
continue spironolactone 25 mg daily
PO Lasix 80 mg BID
Lower extremity Dopplers neg
Creatinine stable, weight trending down
#Pseudohyponatremia
TSH/am cortisol normal, urine studies reviewed
likely d/t hyperglycemia and/or hypertriglyceridemia
since improved/resolved
#Hypertriglyceridemia
Triglycerides 1865, LDL 35 is an accurate
Patient on Vascepa at home
Started Zetia and atorvastatin
#Uncontrolled type 2 diabetes with hemoglobin A1c 9.6
Blood sugars much improved on current regimen, continue Lantus 33 units daily at noon, Premeal insulin
Diabetic diet, sliding scale insulin, insulin teaching -patient will need to continue insulin upon discharge
Patient has also been seen by the teradata architect
#Hypomagnesemia
Repleted and resolved
#Cigar dependency
Quit smoking 15 years ago, now smokes 1 cigar a day
Cigar cessation counseling has been provided
#Hypothyroidism
TSH 18.4, free T4 normal
Currently on levothyroxine 225 mcg daily, now increased to 250 mcg daily
Repeat thyroid function test in 4-6 weeks
outpt follow up with Assistant Director Of Public Works recommended
#History of seizure disorder
Continue Depakote
#Anxiety/depression
Continue mirtazapine, Wellbutrin
#History of gout
Continue allopurinol
#Obesity due to excess calories
Affects all aspects of care
PT/OT appreciated Home Services
DVT prophylaxis�subcu Lovenox
Full Code
Medically stable for discharge home with home services and outpt follow up recommendations.
Total Time Preparing Discharge __40 minutes including examination of the patient, summary of the hospital stay, instructions for continuing care to all relevant caregivers; and preparation of discharge records, prescriptions, and referral
forms if necessary.
Anticipated Discharge: Today
Subjective/Interval History
-
Date of Service: March 15, 2025
No acute distress, overall reports feeling well. Eager to go home. Denies new acute issues.
Objective Data
-
Vital Signs:
Vital Signs
Temp Pulse Resp BP Pulse Ox
97.8 F 81 16 115/65 96
03/15/25 07:25 03/15/25 07:25 03/15/25 07:25 03/15/25 07:25 03/15/25 07:25
I&O
03/14/25 03/15/25 03/16/25
06:59 06:59 06:59
Intake Total 2039 / 2039 1140 / 1140
Output Total 475 / 475
Balance 1565 / 1565 1140 / 1140
[2025-03-15 07:53] LABS: Glucose - Point of Care 107 mg/dl (70-99)
[2025-03-15] MEDS: NOVOLOG FLEXPEN-MODERATE RESISTANCE SC ×2 (07:54→12:46)
[2025-03-15] MEDS: ZETIA 10 MG PO (07:55)
[2025-03-15] MEDS: EFFEXOR XR 300 MG PO (07:55)
[2025-03-15] MEDS: ALDACTONE 25 MG PO (07:55)
[2025-03-15] MEDS: LASIX 80 MG PO (07:55)
[2025-03-15] MEDS: ZESTRIL 10 MG PO (07:55)
[2025-03-15] MEDS: GLUCOPHAGE 1000 MG PO (07:56)
[2025-03-15] MEDS: LOW STRENGTH ASPIRIN 81 MG PO (07:56)
[2025-03-15] MEDS: PLAVIX 75 MG PO (07:56)
[2025-03-15] MEDS: WELLBUTRIN XL (24 hour extended release) 150 MG PO (07:56)
[2025-03-15] MEDS: DEPAKOTE (12 HR RELEASE) 1000 MG PO (07:56)
[2025-03-15] MEDS: ZYLOPRIM 100 MG PO (07:56)
[2025-03-15] MEDS: THERAGRAN 1 TABLET PO (07:56)
[2025-03-15] MEDS: COREG 12.5 MG PO (07:56)
[2025-03-15] MEDS: NOVOLOG FLEXPEN 15 UNITS SC ×2 (07:57→12:45)
--- NOTE | 2025-03-15 10:13 | W.PN.CARDCBS ---
Addendum entered and electronically signed by Candis Navarro MD 03/15/25 12:51:
I saw and examined the patient.
The Electric Track Switch Maintainer's note was reviewed and I agree with the note.
Comment: Overall patient is significantly improved this admission and denies any resting or exertional chest discomfort. No shortness of breath at rest but does still get somewhat short of breath if he walks too quickly.
Vital signs and lab work reviewed. On exam patient is morbidly obese, in no acute distress, JVP of about 8 cm of water, regular rate, normal S1 and S2, no murmurs, rubs or gallops, lungs are clear to auscultation bilaterally, abdomen is soft,
nontender, nondistended with active bowel sounds, warm extremities without significant edema.
Recommendations:
1. Optimization of goal-directed medical therapy for nonischemic cardiomyopathy with aspirin, carvedilol, lisinopril and Aldactone.
2. Given his prior stroke, he will also remain on Plavix, Lipitor, Zetia and Vascepa.
3. Maintain euvolemia with daily 80 mg twice daily of Lasix.
4. Educated in regards to checking daily upright weights, keeping an eye as an outpatient on renal function and electrolytes.
5. Outpatient follow-up with his middle card tender, Dr. Delcid.
Candis Navarro MD, [facility], [facility]
Original Note:
Today's Communication / Plan
-
po lasix 80mg BID
asa, plavix
coreg, lisinopril, aldactone
lipitor, zetia, vascepa
OP follow up with Dr. Delcid
Impression / Plan
-
Primary Stretcher Helper: Dr. Delcid of [facility]
Assessment:
Presentation 03/09/2025 with headache, visual changes
Subacute L CVA
Hypertensive emergency, improved
Acute on chronic heart failure with reduced EF
History of SVT ablation in 1993
Intermittent complete heart block resulting in [employer] dual-chamber pacemaker placement
lead dislodgment and revision in 2011
NICM diagnosed 2012 with upgrade of device to [employer] BiV ICD
History of right parietal CVA in 2015
History of seizure disorder
Type 2 diabetes
Hypertension
Hyperlipidemia/Hypertriglyceridemia
Hypothyroidism
Gout
Depression/anxiety
Obesity
Med noncompliance
ECHO 2019: Technically difficult study, moderately dilated LV, LVSF severely reduced however impossible to comment upon segmental wall motion given limitations of study, severe global hypokinesis of LV
ECHO 03/10/2025: Technically difficult study, EF 15%, stage I diastolic dysfunction, mildly dilated RA, mild MR, PAP 22 mmHg
Plan:
- Patient presented 03/09/2025 with headache and visual changes and is found by head CT to have subacute left CVA. Also with hypertensive emergency, likely secondary to medication noncompliance over the last 2 months
- Recommendations post CVA per neurology. Continue on asa, plavix for 21 days then ASA alone
- Weight down 7 to 8 pounds if scale correct since admission, 320pounds this AM. Nephrology has transitioned patient to Lasix 80 mg p.o. twice daily.
- Hyponatremia likely secondary to diuresis, has improved. repeat BMP in 1 week
- Echo with results as above, EF 15%. Upon review of prior records obtained and reviewed from [facility], EF was significantly reduced in past
- Blood pressure significantly improved back on coreg 12.5mg BID, lisinopril 10mg daily, aldactone 25mg daily. Blood pressure currently not allowing for up titration of medication. of note, was previously on entresto in outpatient setting,
consider transitioning as OP as BP allows. SGLT2 inhibitor felt to be cost prohibitive at this time
- triglycerides significantly elevated at 1800. on vascepa as OP, but was not on statin? Prestatin lipids TC 265, HDL 40, LDL 35, triglycerides 1865. New to Lipitor 40mg QPM and zetia this admission in addition to vascepa. LDL goal <70
- synthroid dose decreased this admission due to elevated TSH
- Patient has [employer] biventricular ICD. no arrhythmias noted by device check 03/14
- encouraged medication compliance
- discussed continued attempts at weight loss. to discuss GLP1 medications with PCP/middle card tender
- OP follow up with Dr. Delcid.
- ok for DC from cardiac standpoint
History of Present Illness 03/11/2025:
Patient is a 59-year-old male with past medical history of hypothyroidism, SVT ablation in 1993, subsequent intermittent complete heart block resulting in [employer] dual-chamber pacemaker placement, then with lead dislodgment and revision in 2011,
nonischemic cardiomyopathy diagnosed in 2012 with subsequent upgrade of device to a [employer] BiV ICD, right parietal CVA in 2015, type 2 diabetes, hyperlipidemia, chronic heart failure with reduced EF who presents to [facility] due to evaluation of
headache and visual changes. He reports for the last several months he has not been taking his medications as he ran out. He has not been seen by his middle card tender Dr. Delcid for some time, and states he was having financial issues with an
outstanding balance at Dr. Delcid's office, and therefore did not want to schedule follow-up, but was told he could not get refills of his medicines without coming in to be seen. Head CT showed moderate to large size area of decreased attenuation
in left posterior parietal occipital region representing subacute nonhemorrhagic infarct. Also presented with hypertensive emergency.
Progress Note - Stretcher Helper
Subjective
Date of Service: March 15, 2025
denies CP, palpitations. reports breathing improving
Objective
Labs:
03/09/25 06:09
03/14/25 05:57
Labs
Hgb 15.0 g/dL (13.0-18.0) 03/09/25 06:09
Hct 41.9 % (39.0-52.0) 03/09/25 06:09
Plt Count 338 10^3/uL (130-400) 03/09/25 06:09
Sodium 135 mmol/L (135-145) 03/14/25 05:57
Potassium 5.0 mmol/L (3.5-5.1) 03/14/25 05:57
BUN 26 mg/dl (9-20) H 03/14/25 05:57
Creatinine 1.1 mg/dL (0.7-1.3) 03/14/25 05:57
Glucose 127 mg/dl (70-99) H 03/14/25 05:57
Vital Signs and I&O:
Vital Signs
Temp Pulse Resp BP Pulse Ox
97.8 F 81 16 115/65 96
03/15/25 07:25 03/15/25 07:55 03/15/25 07:25 03/15/25 07:55 03/15/25 08:38
Vital Signs
Temp Pulse Resp BP Pulse Ox
97.8 F 81 16 115/65 96
03/15/25 07:25 03/15/25 07:55 03/15/25 07:25 03/15/25 07:55 03/15/25 08:38
Intake & Output
03/13/25 03/14/25 03/15/25 03/16/25
07:59 07:59 07:59 07:59
Intake Total 2039 / 2039 1140 / 1140
Output Total 475 / 475
Balance 1565 / 1565 1140 / 1140
Physical Exam
Physical Exam
GEN: No distress, awake, alert, oriented x3. obese
HEENT: supple, anicteric, mmm, eomi
LUNGS: CTA B/L, no wheezes/rales
CV: Reg, S1/S2, no murmur
ABD: soft, BS+, NT/ND
EXT: No cyanosis, clubbing, edema
NEURO: Gross non-focal
SKIN: Warm, pink, dry. No rash
--- NOTE | 2025-03-15 11:44 | W.PN.NEPH.PH ---
Today's Communication / Plan
-
Okay for discharge from renal standpoint
Assessment/Plan
-
IMP:
Subacute CVA
Hypertensive emergency
Acute heart failure, cardiomyopathy EF ?30% per pt report
Hypervolemic hyponatremia
Hypertriglyceridemia
no gap met acidosis
Uncontrolled type 2 diabetes with hemoglobin A1c 9.6
Cigar dependency
Hypothyroidism
Anxiety/depression
History of gout
Obesity due to excess calories
possible sleep apnea
Plan:
continue acei, MRA
Electrolytes normalized and normal creatinine 1.1
Okay for discharge from renal standpoint.
No need for renal follow-up outpatient
-
-
Date of Service: March 15, 2025
CC / HPI / ROS
-
Chief Complaint:
hyponatremia
History of Present Illness:
Na up to 133
EF 15%, lasix for decompensated HFrEF
Review of Systems:
no CP/SOB
Labs
-
Labs:
WBC 10.8 10^3/uL (4.8-10.8) 03/09/25 06:09
RBC 4.90 10^6/uL (4.70-6.10) 03/09/25 06:09
Hgb 15.0 g/dL (13.0-18.0) 03/09/25 06:09
Hct 41.9 % (39.0-52.0) 03/09/25 06:09
Plt Count 338 10^3/uL (130-400) 03/09/25 06:09
Sodium 135 mmol/L (135-145) 03/14/25 05:57
Potassium 5.0 mmol/L (3.5-5.1) 03/14/25 05:57
Chloride 95 mmol/L (98-107) L 03/14/25 05:57
Carbon Dioxide 34 mmol/L (22-30) H 03/14/25 05:57
BUN 26 mg/dl (9-20) H 03/14/25 05:57
Creatinine 1.1 mg/dL (0.7-1.3) 03/14/25 05:57
eGFR > 60.00 03/14/25 05:57
Glucose 127 mg/dl (70-99) H 03/14/25 05:57
Calcium 9.4 mg/dl (8.4-10.2) 03/14/25 05:57
Bpz-A-Zyrqrqevyht Pept 1740 pg/ml 03/09/25 06:09
Albumin 4.0 g/dl (3.5-5.0) 03/09/25 06:09
Physical Exam
-
Vital Signs:
Vital Signs
Temp Pulse Resp BP Pulse Ox
97.8 F 81 16 115/65 96
03/15/25 07:25 03/15/25 07:55 03/15/25 07:25 03/15/25 07:55 03/15/25 08:38
Cardiovascular:: Regular rate and rhythm
Respiratory:: Bilateral: Coarse
Lung Excursion:: Normal
Abdomen:: Nontender and Soft
Bowel Sounds:: Normal
Extremity Edema:: +1: Bilateral:
[2025-03-15 11:50] VITALS: BP 111/71
[2025-03-15 11:52] LABS: Glucose - Point of Care 144 mg/dl (70-99)
[2025-03-15] MEDS: LANTUS 0.33 UNITS SC (12:45)
[2025-03-15 13:10] VITALS: BP 111/77; PULSE 102; O2SAT 97
--- NOTE | 2025-03-15 15:16 | W.DCSUMMARY ---
Discharge Summary
Discharge Data
Date of Admission: 03/09/25
Date of Discharge: 03/15/25
-
Pending Results: No
Discharge Plan
-
Patient Disposition: Home with Home Care
Discharge Diagnosis/Procedures: Subacute Stroke Left posterior-occipital region
Hypertensive Emergency
Acute Heart Failure with Reduced Ejection Fraction 15%
Pseudohyponatremia
Hypertriglyceridemia/Hyperlipidemia
Uncontrolled type 2 diabetes with hemoglobin A1c 9.6
Hypomagnesemia
Hypothyroidism
History of seizure disorder
Anxiety/depression
History of gout
Obesity
Condition: Fair
Diet: Diabetic, Carb Controlled
Activity: As tolerated
Driving Restrictions: Not until seen by your Dr
Bathing Restrictions: None
Blood Work: Repeat BMP with primary care provider in 1 week of discharge
Other Services: PT and OT
Specialty Instructions: Weigh Daily- Call MD for wt gain/loss 3 lbs overnight/5 lbs in 1 week
Activity Restrictions/Additional Instructions:
Follow up with primary care provider in 1 week of discharge, keep your appointment with cardiology, follow up with program management professional in 1-2 weeks of discharge, Endocrinology in 2 weeks of discharge, and neurology in 1 month of discharge.
No driving until cleared by your healthcare provider and/or other healthcare provider involved in your care.
Aspirin Plavix prescribed for stroke, 03/30/25 last day for Plavix, continue with aspirin indefinitely.
Statin and Zetia prescribed for hyperlipidemia and further stroke risk reduction.
Synthroid increased to 250 mcg daily for better control Hypothyroidism.
Lasix Lisinopril and Coreg prescribed for Heart Failure.
Novolog 15 units before more meals (three times a day) and Lantus 33 units at noon prescribed for better control of Diabetes.
Please take medications as prescribed/recommended and follow up with primary care provider and/or other healthcare provider involved in your care for refills and/or further adjustment to your medication regimen as necessary.
Instructions: *PCP/Other Group Chief Operator Heart Failure Instructions
Referrals:
Galiani,Morgan L., MD [Active, Ophthalmology] - in one to two weeks
Stew Palacios MD [Active, Neurology] - in one month
Cristy Bedoya MD [Consulting Staff, Endocrinology] - in two weeks
Iain Nicholson Jr., DO [Family Provider, [facility]] - in one week
Harris Delcid MD [Non-Admitting Privileges, Internal Medicine] - 04/07/25 1:30 pm
Referral Note: Please call with questions. At [address] [facility] [address]
Prescriptions:
New
furosemide 80 mg Tablet
80 mg PO BID@0800,1600 Qty: 60 0RF
levothyroxine 50 mcg Tablet
50 mcg PO DAILY @ 0600 Qty: 30 0RF
Rx Instructions:
total 250 mcg daily
aspirin 81 mg Tablet,Chewable
81 mg PO DAILY Qty: 30 0RF
ezetimibe 10 mg Tablet
10 mg PO DAILY Qty: 30 0RF
atorvastatin 40 mg Tablet
40 mg PO QPM Qty: 30 0RF
carvedilol 12.5 mg Tablet
12.5 mg PO BID Qty: 60 0RF
lisinopril 10 mg Tablet
10 mg PO DAILY Qty: 30 0RF
insulin glargine [Basaglar KwikPen U-100 Insulin] 100 unit/mL (3 mL) insulin pen
33 unit SC NOON Qty: 15 0RF
insulin aspart U-100 [Novolog FlexPen U-100 Insulin] 100 unit/mL (3 mL) insulin pen
15 unit SC AC Qty: 15 0RF
clopidogrel 75 mg Tablet
75 mg PO DAILY Qty: 15 0RF
Rx Instructions:
03/30/25 last day for Plavix. Continue with Aspirin indefinitely.
(DME) pen needle, diabetic 29 gauge x 1/2' needle
See Rx Instructions .Route Qty: 200 0RF
Rx Instructions:
As directed
(DME) Contour Next Test Strips Strip
Qty: 200 0RF
Rx Instructions:
As Directed
(DME) lancets [Color Lancets] 21 gauge Misc
Qty: 200 0RF
Rx Instructions:
As Directed
Continued
allopurinol 100 mg Tablet
100 mg PO DAILY
metformin 500 mg Tablet
1,000 mg PO BID
venlafaxine [Effexor XR] 150 mg Capsule,Extended Release 24hr
150 mg PO HS
venlafaxine [Effexor XR] 150 mg Capsule,Extended Release 24hr
300 mg PO DAILY
therapeutic multivitamin Tablet
1 tab PO DAILY
divalproex [Depakote] 500 mg Tablet,Delayed Release (Dr/Ec)
1,000 mg PO BID
spironolactone 25 mg Tablet
25 mg PO DAILY
trazodone 100 mg Tablet
200 mg PO HS
levothyroxine [Synthroid] 200 mcg Tablet
200 mcg PO DAILY
mirtazapine 15 mg Tablet
15 mg PO HS
bupropion HCl [Wellbutrin XL] 150 mg Tablet Extended Release 24 Hr
150 mg PO DAILY
cholecalciferol (vitamin D3) [Vitamin D3] 25 mcg (1,000 unit) Tablet
25 mcg PO DAILY
testosterone 20.25 mg/1.25 gram (1.62 %) Gel In Metered-Dose Pump
2 pump TOPICAL DAILY
icosapent ethyl [Vascepa] 1 gram Capsule
2 g PO BID
magnesium oxide 400 mg magnesium Tablet
400 mg PO DAILY
Discontinued
aspirin 325 mg Tablet
325 mg PO DAILY
levothyroxine [Synthroid] 25 mcg Tablet
25 mcg PO DAILY
Discharge Orders:
Discharge Patient (As Directed); Ordered 03/15/25
Ordered By: Omayra Miller
Discharge Date and Time
Print Language: QATARI
[2025-03-15 15:54] VITALS: BP 110/84
[2025-03-15] MEDS: PREVNAR 20 0.5 ML IM (16:00)
[2025-03-15] MEDS: LASIX PO (16:36)
== END 2025-03-15 16:57 | disposition home health service (06) | DRG 64 ==
LOC: 3 WEST ACU 11:23
PROVIDERS: Internal Medicine Cardiovascular Disease; Student in an Organized Health Care Education/Training Program; ADMITTING PHYSICIAN Family Medicine; ATTENDING PHYSICIAN Internal Medicine; CONSULT PHYSICIAN Internal Medicine; CONSULT PHYSICIAN Internal Medicine Cardiovascular Disease; CONSULT PHYSICIAN Psychiatry & Neurology Neurology; EMERGENCY PHYSICIAN Emergency Medicine; FAMILY PHYSICIAN Family Medicine
PROC: 4B02XTZ Measurement of Cardiac Defibrillator, External Approach (ICD-10-PCS; 2025-03-14)
DX: I63.532 Cerebral infarction due to unspecified occlusion or stenosis of left posterior cerebral artery (principal); I50.23 Acute on chronic systolic (congestive) heart failure; E87.1 Hypo-osmolality and hyponatremia; I16.1 Hypertensive emergency; Z68.41 Body mass index [BMI] 40.0-44.9, adult; Z87.891 Personal history of nicotine dependence; E11.65 Type 2 diabetes mellitus with hyperglycemia; E83.42 Hypomagnesemia; E03.9 Hypothyroidism, unspecified; F32.A Depression, unspecified; E66.09 Other obesity due to excess calories; E78.1 Pure hyperglyceridemia; Z59.9 Problem related to housing and economic circumstances, unspecified; Z79.4 Long term (current) use of insulin; Z79.82 Long term (current) use of aspirin; Z79.899 Other long term (current) drug therapy; Z95.0 Presence of cardiac pacemaker
CPT/HCPCS: 70450; 71045; 80048; 80053; 80061; 82533; 82607; 82728; 82746; 82962; 83036; 83721; 83735; 83880; 83930; 83935; 84295; 84300; 84439; 84443; 85025; 87502; 87811; 92507; 92523; 92610; 93005; 93306; 93880; 93970; 96361; 96374; 96375; 97116; 97129; 97162; 97167; 97530; 97535; 99291; Q9950